=== PATIENT | female | born 1940 | race Caucasian/White ===

== ENCOUNTER 2017-01-18 04:18 | Emergency (ER) | payer MEDICARE ==
[2017-01-18] MEDS ORDERED: FUROSEMIDE INJ/PF 40 MG/4 ML SDV IV ONE (04:38)
[2017-01-18] MEDS ORDERED: IPRATROPIUM/ALBUTEROL 0.5-2.5 MG/3 ML AMPUL NEB ONE (04:43)
[2017-01-18] MEDS ORDERED: PREDNISONE 20 MG TABLET PO ONE (04:43)
[2017-01-18 05:15] LABS: ABSOLUTE BASOPHILS # (AUTO) 0.1 10^3/uL (0.0-0.2); ABSOLUTE EOSINOPHILS # (AUTO) 0.2 10^3/uL (0.0-0.6); ABSOLUTE LYMPHOCYTES (AUTO) 0.7 10^3/uL (0.5-4.7); ABSOLUTE MONOCYTES (AUTO) 0.8 10^3/uL (0.1-1.4); ABSOLUTE NEUT (AUTO) 4.1 10^3/uL (1.7-8.2); BASOPHILS % (AUTO) 1.3 % (0-2); EOSINOPHILS % (AUTO) 3.5 % (0-6); HEMATOCRIT 34.2 % (36.0-47.0); HEMOGLOBIN 11.5 g/dL (12.0-15.5); HGB HCT DIFFERENCE 0.3; LYMPHOCYTES % (AUTO) 11.3 % (13-45); MEAN CORPUSCULAR HEMOGLOBIN 30.5 pg (27.0-33.4); MEAN CORPUSCULAR HGB CONC 33.7 g/dL (32.0-36.0); MEAN CORPUSCULAR VOLUME 90 fl (80-97); RED BLOOD COUNT 3.78 10^6/uL (3.72-5.28); RED CELL DISTRIBUTION WIDTH 15.8 % (11.5-14.0); SEGMENTED NEUTROPHILS % (AUTO) 70.9 % (42-78); WHITE BLOOD COUNT 5.8 10^3/uL (4.0-10.5)
--- NOTE | 2017-01-18 05:15 | ER Document Report ---
ED Respiratory Problem - General Chief Complaint: Respiratory Distress Stated Complaint: DIFFICULTY BREATHING Notes: The patient is a 76-year-old female, past medical history CHF, hypertension, a fib, presents with mild shortness of breath over the past 4 days, worse with exertion and when she lays down. She has gained about 4 pounds over this time. She takes 40 mg Lasix twice a day and wears compression socks. She denies chest pain, syncope, fevers, leg swelling, cough, sputum, nausea, vomiting, abdominal pain, back pain or headache. TRAVEL OUTSIDE OF THE [place] IN LAST 30 DAYS: No COUNTRY TRAVELED TO/FROM: [facility] - Related Data Allergies/Adverse Reactions: Penicillins Allergy (Mild, Verified 01/18/17 04:23) Past Medical History - General Information source: Patient - Social History Smoking Status: Unknown if Ever Smoked Family History: CAD - sister, Other - father w/ dementia Patient has suicidal ideation: No Patient has homicidal ideation: No - Past Medical History Cardiac Medical History: Reports: Hx Atrial Fibrillation, Hx Congestive Heart Failure, Hx Hypercholesterolemia, Hx Hypertension, Hx Peripheral Vascular Disease Pulmonary Medical History: Reports: Hx COPD Denies: Hx Tuberculosis Endocrine Medical History: Reports: Hx Diabetes Mellitus Type 2 Renal/ Medical History: Denies: Hx Peritoneal Dialysis Malignancy Medical History: Reports: Hx Ovarian Cancer GI Medical History: Reports: Hx Ulcer Psychiatric Medical History: Reports: Hx Dementia Denies: Hx Depression Past Surgical History: Reports: Hx Hysterectomy, Hx Vascular Surgery - Left lower extremity vascular stent. Denies: Hx Pacemaker - Immunizations Hx Diphtheria, Pertussis, Tetanus Vaccination: Yes Hx Pneumococcal Vaccination: 09/27/10 Review of Systems - Review of Systems Notes: REVIEW OF SYSTEMS: CONSTITUTIONAL: -fevers, -chills EENT: -eye pain, -difficulty swallowing, -nasal congestion CARDIOVASCULAR: -chest pain, -syncope. RESPIRATORY: -cough, +SOB GASTROINTESTINAL: -abdominal pain, - nausea, -vomiting, -diarrhea GENITOURINARY: -dysuria, -hematuria MUSCULOSKELETAL: -back pain, -neck pain SKIN: -rash or skin lesions. HEMATOLOGIC: -easy bruising or bleeding. LYMPHATIC: -swollen, enlarged glands. NEUROLOGICAL: -altered mental status or loss of consciousness, -headache, - neurologic symptoms PSYCHIATRIC: -anxiety, -depression. ALL OTHER SYSTEMS REVIEWED AND NEGATIVE. Physical Exam - Vital signs Vitals: Temp Pulse Resp BP Pulse Ox 97.3 F 91 20 133/81 H 96 01/18/17 04:23 01/18/17 04:23 01/18/17 04:23 01/18/17 04:01/18/17 04:23 - Notes Notes: PHYSICAL EXAMINATION: GENERAL: Well-appearing, well-nourished and in no acute distress. HEAD: Atraumatic, normocephalic. EYES: Pupils equal round and reactive to light, extraocular movements intact, sclera anicteric, conjunctiva are normal. ENT: nares patent, oropharynx clear without exudates. Moist mucous membranes. NECK: Normal range of motion, supple without lymphadenopathy LUNGS: Mild bibasilar rales. No respiratory distress. HEART: Regular rate. Irregular rhythm. ABDOMEN: Soft, nontender, normoactive bowel sounds. No guarding, no rebound. No masses appreciated. EXTREMITIES: Compression stockings in place. Normal range of motion, no pitting or edema. No cyanosis. NEUROLOGICAL: Cranial nerves grossly intact. Normal speech, normal gait. Normal sensory, motor, and reflex exams. PSYCH: Normal mood, normal affect. SKIN: Warm, Dry, normal turgor, no rashes or lesions noted. Course - Re-evaluation Re-evalutation: Patient in no respiratory distress. Chest x-ray does not show any acute changes. After IV Lasix, patient feels much better and she is ambulating around the emergency room without any shortness of breath or SMITH. EKG is unchanged and labs are unremarkable. Will discharge patient home with follow- up at her primary care physician. Given strict return precautions and she understands. - Vital Signs Vital signs: Temp Pulse Resp BP Pulse Ox 97.3 F 91 20 133/81 H 96 01/18/17 04:23 01/18/17 04:23 01/18/17 04:23 01/18/17 04:23 01/18/17 04:23 - Laboratory Result Diagrams: 01/18/17 05:04 01/18/17 05:04 - Diagnostic Test Radiology reviewed: Image reviewed, Reports reviewed Radiology results interpreted by me: CXR: NAD - EKG Interpretation by Me Rate: Normal Rhythm: A.Fib When compared to previous EKG there are: No significant change Discharge - Discharge Clinical Impression: SMITH (dyspnea on exertion) Condition: Good Disposition: HOME, SELF-CARE Additional Instructions: Take the Lasix as directed and eat a low-salt diet. Follow-up with your primary care physician today or tomorrow to have your symptoms rechecked. If you begin having worsening shortness of breath or chest pain, return immediately to the emergency room. Congestive Heart Failure You have been diagnosed as having congestive heart failure (CHF). CHF occurs when the heart is unable to pump blood efficiently, leading to fluid buildup in the veins and lungs. Typical symptoms are swelling of the legs, shortness of breath on minor exertion, and fatigue. CHF is treated with salt restriction, medicine to eliminate excess water and salt from the body, and medication to help the heart contract more efficiently. Eliminate added salt and salty foods in your diet. Decrease your activity until excess fluid has been eliminated. It will also be helpful to raise the head of your bed so you can sleep more easily. Keep a daily record of your weight. This will help your physician monitor your progress. Once extra water has been eliminated, light aerobic exercise daily -- such as walking -- will be helpful (unless your physician has told you to restrict activity for other reasons). Be sure to follow up with the physician as instructed. Contact the doctor at once if you worsen in any way. SHORTNESS OF BREATH OR DYSPNEA: You were evaluated for shortness of breath, or dyspnea. Dyspnea has many causes, and some are more serious than others. Sometimes it's impossible to diagnose the cause of dyspnea with the tests that are available on an emergency basis. Based on our evaluation today, you do not need hospitalization now. We found no evidence of pneumonia, collapsed lung, blood clots in the lung, tumors , or heart failure. Causes of non-specific dyspnea can include asthma or bronchospasm, hyperventilation, emotional distress, heart disease, emphysema, fibrosis of the lung, and stiffness of the chest wall. In healthy individuals with a single episode, it's sometimes reasonable to do nothing but wait to see if the problem occurs again. Additional tests used to evaluate dyspnea can include cardiac stress testing, echocardiography, pulmonary function testing, CAT scan of the chest, bronchoscopy or pulmonary biopsy. Return if shortness of breath persists or worsens, or if you develop chest pain, fever, cough, confusion, or fainting. NORMAL EXAM AND WORKUP: At this time, your examination and workup show no significant abnormality. No significant abnormal physical findings were noted. All laboratory, EKG, and imaging (x-ray, CT scans, ultrasound) studies that were ordered show no significant abnormality. Although your examination and all studies that were ordered showed no significant abnormal finding, there are no examinations and no studies that are 100% accurate. There is always the possibility that some abnormality could exist and not be detected with physical examination or within the limits and capabilities of laboratory and other studies. You should return or follow up as you were instructed on your visit today for further evaluation if your symptoms do not resolve. FOLLOW-UP CARE: If you have been referred to a physician for follow-up care, call the physician s office for an appointment as you were instructed or within the next two days. If you experience worsening or a significant change in your symptoms, notify the physician immediately or return to the Emergency Department at any time for re-evaluation.
[2017-01-18 05:33] LABS: ANION GAP 13 (5-19); BLOOD UREA NITROGEN 63 mg/dL (7-20); CALCIUM 8.7 mg/dL (8.4-10.2); CARBON DIOXIDE 26 mmol/L (22-30); CHLORIDE 103 mmol/L (98-107); CREATINE KINASE 37 U/L (30-135); CREATININE RESULT 1.55 mg/dL (0.52-1.25); GLUCOSE 116 mg/dL (75-110); POTASSIUM 4.3 mmol/L (3.6-5.0); SODIUM 141.5 mmol/L (137-145)
[2017-01-18 05:44] LABS: TROPONIN I 0.033 ng/mL
[2017-01-18 06:08] VITALS: BP 134/79
--- NOTE | 2017-01-19 11:17 | EKG REPORT ---
SEVERITY:- ABNORMAL ECG - ATRIAL FIBRILLATION, V-RATE 80-133 MULTIFORM VENTRICULAR PREMATURE COMPLEXES LEFT ANTERIOR FASCICULAR BLOCK PROBABLE LVH WITH SECONDARY REPOL ABNRM BORDERLINE PROLONGED QT INTERVAL : Confirmed by: Beatriz Silver 19-Jan-2017 11:15:52
== END 2017-01-18 05:55 | disposition home or self-care (01) ==
LOC: ER 04:18
DX: R06.00 Dyspnea, unspecified (principal); I50.9 Heart failure, unspecified; I11.0 Hypertensive heart disease with heart failure; I48.91 Unspecified atrial fibrillation; E11.9 Type 2 diabetes mellitus without complications; Z88.0 Allergy status to penicillin; Z90.710 Acquired absence of both cervix and uterus; Z85.43 Personal history of malignant neoplasm of ovary
CPT/HCPCS: 93005; 99285; 96374; 36415; 82550; 85025; 80048; 84484; 83880; 71010; 93010; J1940

== ENCOUNTER 2017-09-01 10:37 | Inpatient (IN) | payer MEDICARE ==
--- NOTE | 2017-09-01 11:07 | ER Document Report ---
ED Medical Screen (RME) - General TRAVEL OUTSIDE OF THE [place] IN LAST 30 DAYS: No COUNTRY TRAVELED TO/FROM: [place] <MALLY RAMÍREZ - Last Filed: 09/01/17 12:03> - Related Data Smoking: Cigarettes - Smokes occasionally Frequency of alcohol use: Rare Drug Abuse: None <KITA ROBBINS - Last Filed: 09/01/17 14:28> - General Chief Complaint: Breathing Difficulty Stated Complaint: BREATHING DIFFICULTY Time Seen by Provider: 09/01/17 10:59 Notes: This 76-year-old female patient with past medical history of atrial fibrillation , congestive heart failure, COPD, hypertension, hyperlipidemia, type 2 diabetes , and peripheral vascular disease with a stent in her left lower extremity. She reports a 2 day history of increasing difficulty breathing, no energy, and today noted pain redness and swelling and tenderness to the right dorsal medial foot. The patient does look a little pale. I have greeted and performed a rapid initial assessment of this patient. A comprehensive ED assessment and evaluation of the patient, analysis of test results and completion of the medical decision making process will be conducted by additional ED providers. (MALLY RAMÍREZ) - HPI Notes: 09/01/17 12:16 This 76-year-old female patient with past medical history of atrial fibrillation , congestive heart failure, COPD, hypertension, hyperlipidemia, type 2 diabetes , and peripheral vascular disease with a stent in her left lower extremity. She reports a 2 day history of increasing difficulty breathing, no energy, and today noted pain redness and swelling and tenderness to the right dorsal medial foot. The patient does look a little pale. Triage note reviewed, Presents with exertional shortness of breath on minimal exertion for the last few days. She is also smoking on and off. Has strong history of coronary artery disease and CHF. No fever chills or other constitutional symptoms ( KITA ROBBINS) - Related Data Allergies/Adverse Reactions: Penicillins Allergy (Mild, Verified 09/01/17 10:43) Past Medical History - Past Medical History Cardiac Medical History: Reports: Hx Atrial Fibrillation, Hx Congestive Heart Failure, Hx Hypercholesterolemia, Hx Hypertension, Hx Peripheral Vascular Disease Pulmonary Medical History: Reports: Hx COPD Denies: Hx Tuberculosis Endocrine Medical History: Reports: Hx Diabetes Mellitus Type 2 Renal/ Medical History: Denies: Hx Peritoneal Dialysis Malignancy Medical History: Reports: Hx Ovarian Cancer GI Medical History: Reports: Hx Ulcer Psychiatric Medical History: Reports: Hx Dementia Denies: Hx Depression Past Surgical History: Reports: Hx Hysterectomy, Hx Vascular Surgery - Left lower extremity vascular stent. Denies: Hx Pacemaker - Immunizations Hx Diphtheria, Pertussis, Tetanus Vaccination: Yes <MALLY RAMÍREZ - Last Filed: 09/01/17 12:03> - General Information source: Relative - Social History Cigarette use (# per day): Yes Frequency of alcohol use: Rare - Past Medical History Cardiac Medical History: Reports: Hx Coronary Artery Disease, Hx Heart Attack <KITA ROBBINS - Last Filed: 09/01/17 14:28> Review of Systems - Review of Systems EENT: No symptoms reported Cardiovascular: Lightheaded. denies: No symptoms reported, See HPI, Chest pain , Palpitations, Heart racing, Orthopnea, Dyspnea, Syncope, Dizziness, Edema, Other, Paroxysmal Nocturnal Dysp Gastrointestinal: denies: No symptoms reported, See HPI, Abdomen distended, Abdominal pain, Diarrhea, Nausea, Vomiting, Constipation, Blood streaked bowels , Poor appetite, Poor fluid intake, Blood in vomit, Black stools, Rectal bleeding, Last bowel movement, Fecal incontinence, Other Genitourinary: denies: No symptoms reported, See HPI, Burning, Dysuria, Discharge, Frequency, Flank pain, Hematuria, Incontinence, Pain, Urgency, Retention, Other Female Genitourinary: denies: No symptoms reported, See HPI, Last menstrual period, , Post menopausal, Heavy/abnormal periods, Irregular period, Vaginal bleeding, Vaginal discharge, Vaginal odor, Painful intercourse, Other Musculoskeletal: Leg swelling, Ankle swelling. denies: No symptoms reported, See HPI, Back pain, Gout, Joint pain, Joint swelling, Muscle pain, Muscle stiffness, Neck pain, Deformity, Other Skin: denies: No symptoms reported, See HPI, Change in color, Change in hair/ nails, Dryness, Lesions, Lumps, Rash, Other Neurological/Psychological: denies: No symptoms reported, See HPI, Confusion, Dementia, Depression, Hallucinations, Anxiety, Homicidal ideation, Sensory change, Weakness, Gait changes, Loss of power, Paralysis, Seizure, Lost consciousness, Headaches, Speech impairment, Numbness, Suicidal ideation, Tingling, Tremor, Other <KITA ROBBINS - Last Filed: 09/01/17 14:28> Physical Exam - General General appearance: Alert - HEENT Head: No: Normocephalic, Atraumatic, Abrasions, Benton's sign, Ecchymosis, Open wounds, Racoon's eyes, Tenderness, Other Eyes: No: Normal, Pale conjunctiva, Periorbital ecchymosis, Periorbital edema, Scleral icterus, Tears, Other Conjunctiva: Normal. No: Icteric, Injected, Purulent discharge, Other Pharynx: No: Normal, Blood in hypopharynx, Erythema, Exudate, Peritonsillar abscess, Post nasal drainage, Retropharyngeal abscess, Tonsillar hypertrophy, Uvular edema, Potential airway comprom., Other Neck: Other - Positive for JVD - Respiratory Respiratory status: No respiratory distress, Labored. No: Respiratory distress , Agonal respirations, Cyanosis, Depressed respirations, Pursed lip breathing, Retractions, Tachypnea, Tripod position, Other Chest status: Nontender Breath sounds: Rales - Lower lung gay have diffuse inspiratory rales Chest palpation: Normal - Cardiovascular Rhythm: Regular Heart sounds: Normal auscultation, S1 appreciated, S2 appreciated - Abdominal Inspection: Normal. No: Caput medussa, Fresh incision, Gravid female, Healed incision, Striae, Wounds, Obese, Morbidly Obese, Other Distension: No: No distension, Distended, Tympanitic, Fluid wave, Distended bladder, Other Bowel sounds: Normal Tenderness: No: Nontender, Tender, McBurney's point, Sol's sign, Guarding, Rebound, Other Organomegaly: No: No organomegaly, Hepatomegaly, Splenomegaly, Mass, Other - Extremities General upper extremity: No: Normal inspection, Nontender, Tender, Edema, Normal color, Normal ROM, Normal strength, Normal temperature, Other General lower extremity: No: Normal inspection, Nontender, Tender, Edema, Normal color, Normal ROM, Normal strength, Normal temperature, Normal weight bearing, Sin's sign, Other Shoulder: No: Normal, Nontender, Tender, Abrasion, Deformity, Dislocation, Ecchymosis, Instability, Laceration, Limited ROM, Other Elbow: No: Normal, Nontender, Tender, Abrasion, Deformity, Dislocation, Ecchymosis, Instability, Joint effusion, Laceration, Limited ROM, Swollen bursa , Other Forearm: No: Normal, Nontender, Tender, Abrasion, Deformity, Ecchymosis, Instability, Laceration, Other Wrist: No: Normal, Nontender, Tender, Axial load of thumb pain, Abrasion, Deformity, Dislocation, Ecchymosis, Instability, Laceration, Limited ROM, Navicular tenderness, Other Hand: No: Normal, Nontender, Tender, Abrasion, Deformity, Dislocation, Ecchymosis, Instability, Nail injury, Laceration, No evidence of human bite, No evidence of FB, Swelling, Tendon deficit, Other Knee: No: Normal, Nontender, Tender, Abrasion, Deformity, Drawer's test instability, Dislocation, Ecchymosis, Joint effusion, Instability, Laxity with valgus stress, Laxity with varus stress, Laceration, Pain with ROM, Patellar tendon intact, Popliteal fossa tender, Tender joint line, Unable to bear weight , Other - Neurological Neuro grossly intact: Yes - Psychological Associated symptoms: Normal affect - Skin Skin Temperature: Warm <KITA ROBBINS - Last Filed: 09/01/17 14:28> - Vital signs Vitals: Temp Pulse Resp BP Pulse Ox 97.6 F 109 H 19 101/55 L 100 09/01/17 11:00 09/01/17 11:00 09/01/17 11:00 09/01/17 11:00 09/01/17 11:00 Course - Laboratory Result Diagrams: 09/01/17 11:25 09/01/17 11:25 <MALLY RAMÍREZ - Last Filed: 09/01/17 12:03> - Laboratory Result Diagrams: 09/01/17 11:25 09/01/17 11:25 - EKG Interpretation by Ak Rhythm: A.Fib - Atrial fibrillation at the rate of 87 bpm left axis, poor R- wave in anterior leads, no ST elevation or ST depression, no T-wave inversion noted. <KITA ROBBINS - Last Filed: 09/01/17 14:28> - Re-evaluation Re-evalutation: 09/01/17 14:24 Discussed with family regarding the admission to the hospital and blood transfusion 09/01/17 14:24 Discussed with the hospitalist and currently being admitted to the hospitalist service (KITA ROBBINS) - Vital Signs Vital signs: Temp Pulse Resp BP Pulse Ox 97.6 F 109 H 21 H 101/55 L 100 09/01/17 11:00 09/01/17 11:00 09/01/17 13:26 09/01/17 11:00 09/01/17 11:00 - Laboratory Laboratory results interpreted by me: 09/01/17 09/01/17 09/01/17 11:25 11:25 11:25 RBC 2.68 L Hgb 6.3 L Hct 20.5 L MCV 77 L MCH 23.5 L MCHC 30.7 L RDW 18.6 H Seg Neuts % (Manual) 81 H Lymphocytes % (Manual) 4 L Monocytes % (Manual) 15 H Abs Lymphs (Manual) 0.2 L Sodium 132.2 L Potassium 5.3 H Carbon Dioxide 16 L BUN 136 H Creatinine 2.87 H Est GFR ( Amer) 19 L Est GFR (Non-Af Amer) 16 L Glucose 294 H Direct Bilirubin 0.7 H AST 11 L Creatine Kinase 24 L NT-Pro-B Natriuret Pep 25185 H Crossmatch 09/01/17 13:12 RBC Hgb Hct MCV MCH MCHC RDW Seg Neuts % (Manual) Lymphocytes % (Manual) Monocytes % (Manual) Abs Lymphs (Manual) Sodium Potassium Carbon Dioxide BUN Creatinine Est GFR ( Amer) Est GFR (Non-Af Amer) Glucose Direct Bilirubin AST Creatine Kinase NT-Pro-B Natriuret Pep Crossmatch See Detail Doctor's Discharge <MALLY RAMÍREZ - Last Filed: 09/01/17 12:03> <KITA ROBBINS - Last Filed: 09/01/17 14:28> - Discharge Clinical Impression: Acute congestive heart failure Qualifiers: Congestive heart failure type: systolic Qualified Code(s): I50.21 - Acute systolic (congestive) heart failure Anemia Qualifiers: Anemia type: iron deficiency Iron deficiency anemia type: chronic blood loss Qualified Code(s): D50.0 - Iron deficiency anemia secondary to blood loss ( chronic) Acute on chronic renal failure Qualifiers: Acute renal failure type: with acute renal cortical necrosis Chronic kidney disease stage: stage 3 (moderate) Qualified Code(s): N17.1 - Acute kidney failure with acute cortical necrosis; N18.3 - Chronic kidney disease, stage 3 ( moderate); N18.3 - Chronic kidney disease, stage 3 (moderate) Condition: Fair Disposition: ADMITTED INPATIENT Additional Instructions: Admit to hospitalist Suzy
[2017-09-01 11:50] LABS: HEMATOCRIT 20.5 % (36.0-47.0); HGB HCT DIFFERENCE -1.6; MEAN CORPUSCULAR HEMOGLOBIN 23.5 pg (27.0-33.4); MEAN CORPUSCULAR HGB CONC 30.7 g/dL (32.0-36.0); MEAN CORPUSCULAR VOLUME 77 fl (80-97); RED BLOOD COUNT 2.68 10^6/uL (3.72-5.28); RED CELL DISTRIBUTION WIDTH 18.6 % (11.5-14.0); WHITE BLOOD COUNT 5.5 10^3/uL (4.0-10.5)
[2017-09-01 12:02] LABS: HEMOGLOBIN 6.3 g/dL (12.0-15.5)
--- NOTE | 2017-09-01 12:03 | EKG REPORT ---
SEVERITY:- ABNORMAL ECG - ATRIAL FIBRILLATION LEFT ANTERIOR FASCICULAR BLOCK ABNRM R PROG, CONSIDER ASMI OR LEAD PLACEMENT : Confirmed by: Beatriz Silver 01-Sep-2017 12:03:02
[2017-09-01 12:05] LABS: ALANINE AMINOTRANSFERASE 30 U/L (9-52); ALBUMIN 3.5 g/dL (3.5-5.0); ALKALINE PHOSPHATASE 125 U/L (38-126); ANION GAP 16 (5-19); ASPARTATE AMINO TRANSFERASE 11 U/L (14-36); BILIRUBIN,DIRECT 0.7 mg/dL (0.0-0.4); BILIRUBIN,TOTAL 0.8 mg/dL (0.2-1.3); CALCIUM 8.5 mg/dL (8.4-10.2); CARBON DIOXIDE 16 mmol/L (22-30); CHLORIDE 100 mmol/L (98-107); CREATINE KINASE 24 U/L (30-135); CREATININE RESULT 2.87 mg/dL (0.52-1.25); GLUCOSE 294 mg/dL (75-110); MAGNESIUM 1.9 mg/dL (1.6-2.3); POTASSIUM 5.3 mmol/L (3.6-5.0); SODIUM 132.2 mmol/L (137-145); TOTAL PROTEIN 6.9 g/dL (6.3-8.2)
[2017-09-01 12:13] LABS: BLOOD UREA NITROGEN 136 mg/dL (7-20)
[2017-09-01 12:18] LABS: TROPONIN I 0.023 ng/mL
[2017-09-01 12:31] LABS: BASOPHILS % (MANUAL) 0 % (0-2); EOSINOPHILS % (MANUAL) 0 % (0-6); LYMPHOCYTES % (MANUAL) 4 % (13-45); TOTAL CELLS COUNTED 100
[2017-09-01 12:33] LABS: ANISOCYTOSIS 1+; HYPOCHROMASIA 1+; OVALOCYTES 1+; POIKILOCYTOSIS 1+; TOXIC GRANULATION SLIGHT
--- NOTE | 2017-09-01 12:44 | RADIOLOGY REPORT (SQ) ---
EXAM DESCRIPTION: CHEST SINGLE VIEW COMPLETED DATE/TIME: 09/01/2017 12:36 pm REASON FOR STUDY: COPD, dyspnea COMPARISON: 01/18/2017. NUMBER OF VIEWS: One view. TECHNIQUE: Single frontal radiographic view of the chest acquired. LIMITATIONS: None. FINDINGS: LUNGS AND PLEURA: No opacities, masses or pneumothorax. No pleural effusion. MEDIASTINUM AND HILAR STRUCTURES: No masses. Contour normal. HEART AND VASCULAR STRUCTURES: Heart enlarged without failure. Normal vasculature. BONES: No acute findings. HARDWARE: None in the chest. OTHER: No other significant finding. IMPRESSION: HEART ENLARGED WITHOUT FAILURE. NO OTHER SIGNIFICANT RADIOGRAPHIC FINDING IN THE CHEST. TECHNICAL DOCUMENTATION: JOB ID: [id number] [employer]- All Rights Reserved
[2017-09-01] MEDS ORDERED: NORMAL SALINE 250 ML IV PRN ×2 (14:12)
[2017-09-01] MEDS ORDERED: ALBUTEROL SULFATE IH PRN (14:40)
[2017-09-01] MEDS ORDERED: INSULIN REGULAR HUMAN SUBCUT PRN (14:40)
[2017-09-01] MEDS ORDERED: IPRATROPIUM IH PRN (14:40)
[2017-09-01] MEDS ORDERED: [UNRECOGNIZED DRUG - OTHER] IH PRN (14:40)
[2017-09-01] MEDS ORDERED: [UNRECOGNIZED DRUG - OTHER] SUBCUT PRN (14:40)
[2017-09-01] MEDS ORDERED: NITROGLYCERIN 0.4 MG/TAB 25 TAB/BOTTLE SL PRN (14:40)
[2017-09-01 14:43] LABS: APPEARANCE,URINE SLIGHTLY-CLOUDY; BILIRUBIN,URINE NEGATIVE (NEGATIVE); GLUCOSE, URINE NEGATIVE (NEGATIVE); KETONES,URINE NEGATIVE (NEGATIVE); LEUKOCYTE ESTERASE,URINE MODERATE (NEGATIVE); NITRITE,URINE NEGATIVE (NEGATIVE); PROTEIN,URINE NEGATIVE (NEGATIVE); URINE SPECIFIC GRAVITY 1.008; UROBILINOGEN,URINE NEGATIVE mg/dL (<2.0)
[2017-09-01 15:08] LABS: BACTERIA,URINE 3+ /HPF; WBC,URINE 20-30 /HPF
[2017-09-01] MEDS ORDERED: IPRATROPIUM/ALBUTEROL 120 PUFF/4 GM MDI IH PRN (15:14)
[2017-09-01] MEDS ORDERED: DEXTROSE 50%-WATER SYRINGE 25 GM/50 ML DOSE IV PRN (15:45)
[2017-09-01] MEDS ORDERED: DEXTROSE 50%-WATER SYRINGE 12.5 GM/25 ML DOSE IV PRN (15:45)
[2017-09-01] MEDS ORDERED: GLUCAGON,HUMAN RECOMB 1 MG INJ IM PRN (15:45)
[2017-09-01] MEDS ORDERED: DEXTROSE 40% GEL 15 GM TUBE X 2 PO PRN (15:45)
[2017-09-01] MEDS ORDERED: DEXTROSE 40% GEL 15 GM TUBE PO PRN (15:45)
[2017-09-01] MEDS ORDERED: ONDANSETRON HCL INJ/PF 4 MG/2 ML SDV IV ONE (16:00)
[2017-09-01] MEDS ORDERED: NORMAL SALINE 1000 ML 1,000 ML IV PRN (16:43)
[2017-09-01] MEDS ORDERED: ACETAMINOPHEN 325 MG TABLET PO PRN (16:47)
[2017-09-01] MEDS ORDERED: PROMETHAZINE HCL INJ 25 MG/1 ML VIAL IV PRN (16:47)
[2017-09-01] MEDS ORDERED: MAG HYDROX/AL HYDROX/SIMETH SUSP 30 ML UDCUP PO PRN (16:47)
[2017-09-01] MEDS ORDERED: INSULIN LISPRO 100 UNIT/ML 3 ML VIAL SUBCUT SCH (17:00)
[2017-09-01] MEDS ORDERED: NORMAL SALINE 1000 ML 1,000 ML IV ONE (17:00)
[2017-09-01] MEDS ORDERED: SODIUM POLYSTYRENE SULFONATE 15 GM/60 ML PO ONE (17:30)
--- NOTE | 2017-09-01 17:35 | PDOC H&P ---
History of Present Illness Admission Date/PCP: 09/01/2017 [facility] Patient complains of: Generalized weakness, Rt foot pain History of Present Illness: LASHONDA GUERRERO is a 76 year old female with a past medical history of CHF, hypertension, hyperlipidemia, ID, peripheral vascular disease, diabetes mellitus type 2, GERD, remote history of GI bleed, chronic A. fib, depression, and dementia who presented to the emergency department today with a complaint of 2-3 weeks of progressively worsening generalized weakness and fatigue. Most of the HPI is received from the patient's adult daughter with whom the patient lives secondary to patient's forgetfulness. The daughter reports that she noted approximately 2 weeks ago that her mother was sleeping more and having greater difficulty with managing ADLs requiring assistance to and from bedside commode which typically she is capable of managing independently. She has also noted a slight increase in her mother's baseline forgetfulness and confusion. She states that what initially brought the patient to the emergency department today with a complaint of right foot pain, edema, and redness. The patient's daughter does report that the patient has a history of frequent falls which they attribute to the foot pain. They deny precipitating illnesses, fever, chills, chest pain, palpitation, orthopnea, dyspnea, abdominal pain, nausea, vomiting, diarrhea. Additionally they deny evidence of overy bleeding; denies melena, hematochezia, hematemesis. Initial evaluation in the emergency department reveals a hemoglobin of 6.3, Sodium 132.2, potassium 5.3, creatinine 2.87, and proBNP 24,700. She is referred to the hospitalist service for admission. Past Medical History Cardiac Medical History: Reports: Atrial Fibrillation, Congestive Heart Failure , Coronary Artery Disease, Myocardial Infarction, Hyperlipidema, Hypertension, Peripheral Vascular Disease Pulmonary Medical History: Reports: Chronic Obstructive Pulmonary Disease (COPD) Denies: Tuberculosis EENT Medical History: Reports: None Neurological Medical History: Reports: None Endocrine Medical History: Reports: Diabetes Mellitus Type 2 Renal/ Medical History: Reports: Chronic Kidney Disease Malignancy Medical History: Reports: Ovarian Cancer GI Medical History: Reports: Gastroesophageal Reflux Disease Musculoskeltal Medical History: Reports: Gout Skin Medical History: Reports: None Psychiatric Medical History: Reports: Dementia Denies: Depression Traumatic Medical History: Reports: None Hematology: Reports: None Infectious Medical History: Reports: None Past Surgical History Past Surgical History: Reports: Hysterectomy, Vascular Surgery - Left lower extremity vascular stent Denies: Pacemaker Social History Information Source: Patient, Relative Lives with: Family Smoking Status: Former Smoker Frequency of Alcohol Use: None Hx Recreational Drug Use: No Hx Prescription Drug Abuse: No - Advance Directive Resuscitation Status: Full Code Family History Family History: CAD - sister, Other - father w/ dementia Parental Family History Reviewed: Yes Children Family History Reviewed: Yes Sibling(s) Family History Reviewed.: Yes Medication/Allergy Home Medications: Carvedilol [Coreg 6.25 mg Tablet] 6.25 mg PO Q12 09/01/17 Famotidine [Pepcid 40 mg Tablet] 40 mg PO DAILY 09/01/17 Fluoxetine HCl [Prozac 20 mg Capsule] 20 mg PO DAILY 09/01/17 Furosemide [Lasix 40 mg Tablet] 40 mg PO BID 09/01/17 Insulin Glargine,Hum.rec.anlog [Lantus Insulin 100 Unit/1 ml 10 ml] 60 units SUBCUT DAILY 09/01/17 Lisinopril [Zestril] 20 mg PO DAILY 09/01/17 Allergies/Adverse Reactions: Penicillins Allergy (Mild, Verified 09/01/17 10:43) Review of Systems Constitutional: PRESENT: fatigue, weakness. ABSENT: chills, fever(s), headache( s), weight gain, weight loss Eyes: ABSENT: visual disturbances Ears: ABSENT: hearing changes Cardiovascular: ABSENT: chest pain, dyspnea on exertion, edema, orthropnea, palpitations Respiratory: ABSENT: cough, hemoptysis Gastrointestinal: PRESENT: nausea. ABSENT: abdominal pain, coffee ground emesis , constipation, diarrhea, hematemesis, hematochezia, melena, vomiting Genitourinary: ABSENT: dysuria, hematuria Musculoskeletal: PRESENT: joint swelling - Rt foot, muscle weakness - generalized Integumentary: PRESENT: rash - back. ABSENT: wounds Neurological: PRESENT: frequent falls, weakness. ABSENT: abnormal gait, abnormal speech, confusion, dizziness, focal weakness, syncope Psychiatric: ABSENT: anxiety, depression, homidical ideation, suicidal ideation Endocrine: ABSENT: cold intolerance, heat intolerance, polydipsia, polyuria Hematologic/Lymphatic: ABSENT: easy bleeding, easy bruising Physical Exam Vital Signs: Temp Pulse Resp BP Pulse Ox 97.6 F 82 16 92/55 L 100 09/01/17 15:59 09/01/17 15:59 09/01/17 15:59 09/01/17 15:59 09/01/17 15:59 Intake & Output 08/31/17 09/01/17 09/02/17 06:59 06:59 06:59 Intake Total 300 Balance 300 Weight 79.5 kg General appearance: PRESENT: no acute distress, well-developed, well-nourished, other - overweight Head exam: PRESENT: atraumatic, normocephalic Eye exam: PRESENT: conjunctiva pink, EOMI, PERRLA. ABSENT: scleral icterus Ear exam: PRESENT: normal external ear exam Mouth exam: PRESENT: dry mucosa, tongue midline Neck exam: ABSENT: carotid bruit, JVD, lymphadenopathy, thyromegaly Respiratory exam: PRESENT: clear to auscultation lida, symmetrical, unlabored. ABSENT: rales, rhonchi, wheezes Cardiovascular exam: PRESENT: irregular rhythm. ABSENT: diastolic murmur, rubs , systolic murmur, tachycardia Pulses: PRESENT: normal dorsalis pedis pul Vascular exam: PRESENT: normal capillary refill, pallor, other - poor skin turgor GI/Abdominal exam: PRESENT: normal bowel sounds, soft, other - bruising noted to Rt flank. ABSENT: distended, guarding, mass, organolmegaly, rebound, tenderness Rectal exam: PRESENT: normal rectal tone, other - stool sent for guiac. ABSENT : black stool, bloody stool, decreased rectal tone, normal inspection Extremities exam: PRESENT: full ROM. ABSENT: calf tenderness, clubbing, pedal edema Musculoskeletal exam: PRESENT: ambulatory, tenderness - Rt medial foot w/ slight edema and errythema noted Neurological exam: PRESENT: alert, awake, oriented to person, oriented to place , oriented to time, oriented to situation, CN II-XII grossly intact, other - forgetful. ABSENT: motor sensory deficit Psychiatric exam: PRESENT: appropriate affect, normal mood. ABSENT: homicidal ideation, suicidal ideation Skin exam: PRESENT: abrasion - abrasions to toes of right foot, dry, pallor, urticaria - scattered rash to back, warm. ABSENT: cyanosis, rash Results Laboratory Results: 09/01/17 11:25 09/01/17 11:25 09/01/17 09/01/17 09/01/17 11:25 11:25 13:12 WBC 5.5 RBC 2.68 L Hgb 6.3 L Hct 20.5 L MCV 77 L MCH 23.5 L MCHC 30.7 L RDW 18.6 H Plt Count 250 Seg Neutrophils % Not Reportable Lymphocytes % Not Reportable Monocytes % Not Reportable Eosinophils % Not Reportable Basophils % Not Reportable Absolute Neutrophils Not Reportable Absolute Lymphocytes Not Reportable Absolute Monocytes Not Reportable Absolute Eosinophils Not Reportable Absolute Basophils Not Reportable Sodium 132.2 L Potassium 5.3 H Chloride 100 Carbon Dioxide 16 L Anion Gap 16 BUN 136 H Creatinine 2.87 H Est GFR ( Amer) 19 L Est GFR (Non-Af Amer) 16 L Glucose 294 H Calcium 8.5 Magnesium 1.9 Total Bilirubin 0.8 AST 11 L ALT 30 Alkaline Phosphatase 125 Total Protein 6.9 Albumin 3.5 Urine Color Urine Appearance Urine pH Ur Specific Newcomb Urine Protein Urine Glucose (UA) Urine Ketones Urine Blood Urine Nitrite Ur Leukocyte Esterase Ur Squamous Epith Cells Blood Type A POSITIVE Antibody Screen NEGATIVE 09/01/17 14:08 WBC RBC Hgb Hct MCV MCH MCHC RDW Plt Count Seg Neutrophils % Lymphocytes % Monocytes % Eosinophils % Basophils % Absolute Neutrophils Absolute Lymphocytes Absolute Monocytes Absolute Eosinophils Absolute Basophils Sodium Potassium Chloride Carbon Dioxide Anion Gap BUN Creatinine Est GFR ( Amer) Est GFR (Non-Af Amer) Glucose Calcium Magnesium Total Bilirubin AST ALT Alkaline Phosphatase Total Protein Albumin Urine Color YELLOW Urine Appearance SLIGHTLY-CLOUDY Urine pH 5.0 Ur Specific Newcomb 1.008 Urine Protein NEGATIVE Urine Glucose (UA) NEGATIVE Urine Ketones NEGATIVE Urine Blood NEGATIVE Urine Nitrite NEGATIVE Ur Leukocyte Esterase MODERATE H Ur Squamous Epith Cells MODERATE Blood Type Antibody Screen 09/01/17 09/01/17 11:25 11:25 Creatine Kinase 24 L Troponin I 0.023 NT-Pro-B Natriuret Pep 08709 H Impressions: Chest X-Ray 09/01/17 11:08 IMPRESSION: HEART ENLARGED WITHOUT FAILURE. NO OTHER SIGNIFICANT RADIOGRAPHIC FINDING IN THE CHEST. Assessment & Plan - Diagnosis (1) Anemia Qualifiers: Anemia type: iron deficiency Iron deficiency anemia type: chronic blood loss Qualified Code(s): D50.0 - Iron deficiency anemia secondary to blood loss (chronic) Is this a current diagnosis for this admission?: Yes Plan: Acute blood loss anemia in the setting of chronic anemia secondary to chronic kidney disease. Presumed to be GI blood loss. The patient presents to the emergency department with generalized weakness and fatigue. On exam she is noted to have pallor. Hemoglobin is 6.3 down from a baseline of 10. We will obtain a Hemoccult and consider surgical or GI referral for colonoscopy as the patient reports that she has not had a colonoscopy in greater than 10 years. She does have a remote history of ovarian cancer that was treated with a total hysterectomy in her 30s. Additionally, the patient has had a life- threatening GI bleed in the past that prompted her primary care provider to discontinue anticoagulants for her chronic A. fib. She will be further evaluated with a noncontrasted CT of the abdomen and pelvis to rule out retroperitoneal bleed as the patient has had recent falls and is noted to have bruising to her right flank. The patient and her daughter with consented to receive blood products. We discussed the risk and benefits of blood transfusion. She is currently receiving the first of 2 units of packed red blood cells. Supplemental p.o. ferrous sulfate (2) Acute on chronic combined systolic and diastolic heart failure Is this a current diagnosis for this admission?: Yes Plan: Patient is admitted with acute on chronic combined systolic and diastolic heart failure evidenced by generalized weakness and fatigue and a proBNP of greater than 24,000. Chest x-ray is clear. On exam the patient appears volume depleted. Of note, the patient's hemoglobin is 6.3. She will receive 2 units packed red blood cells tonight as well as IV fluid bolus 1 L followed by maintenance fluid. Will hold her diuretics at this time. We will trend daily weights with strict I&Os. Cardiac diet ordered. The patient will continue her home medication Coreg and be placed on losartan. Will obtain lipid panel in the AM. Echocardiogram has been ordered. Previous echo in 2015 traits an ejection fraction of 40-45%. (3) Acute on chronic renal failure Qualifiers: Chronic kidney disease stage: stage 3 (moderate) Is this a current diagnosis for this admission?: Yes Plan: Acute on chronic renal failure. Patient's current creatinine is 2.87 which is elevated from her baseline of 1.5. I believe this to be prerenal in nature as the patient's hemoglobin is severely low and she appears to be volume depleted on exam. We will correct with blood transfusion and IV fluids. Continue to monitor. We will place a Edge with strict I's and O's. (4) Diabetes mellitus Qualifiers: Diabetes mellitus type: type 2 Chronic kidney disease stage: stage 3 ( moderate) Is this a current diagnosis for this admission?: Yes Plan: We will continue patient's home dose of Lantus 60 units daily. Will do Accu- Cheks before meals and at bedtime and cover with sliding scale Humalog. (5) Hyponatremia Is this a current diagnosis for this admission?: Yes Plan: Likely secondary to dehydration. The patient's daughter reports that the patient has been weak and fatigued for 2-3 weeks now and has noted a significant decline in her p.o. intake. The patient is to receive IV fluid replacement. Will continue to monitor. (6) Hyperkalemia Is this a current diagnosis for this admission?: Yes Plan: We will provide Kayexalate 1. EKG is reviewed and does not demonstrate evidence of peak T waves. Patient to receive IV fluids. Will trend BMPs. (7) HTN (hypertension) Is this a current diagnosis for this admission?: Yes Plan: We will continue patient's home medications; Coreg. Her lisinopril will be held secondary to her kidney function. Furosemide will be held secondary to volume depletion. We will place patient on losartan. (8) Atrial fibrillation Qualifiers: Atrial fibrillation type: chronic Qualified Code(s): I48.2 - Chronic atrial fibrillation Is this a current diagnosis for this admission?: Yes Plan: Chronic A. fib; rate controlled. We will continue the patient's home medication ; carvedilol. Chronic anticoagulations is contraindicated secondary to history of severe GI bleed and current anemia. (9) Right foot pain Is this a current diagnosis for this admission?: Yes Plan: The patient has right foot pain with abrasions noted to her fourth through fifth toes and erythema and edema to the medial portion of her foot. The foot is mildly tender. This is likely trauma secondary to a fall, less likely gout. Will obtain imaging. Patient is not a candidate for colchicine or allopurinol at this time secondary to renal function. We will manage pain with Tylenol, elevation, ice. - Time Time Spent: Greater than 70 Minutes Medications reviewed and adjusted accordingly: Yes - Inpatient Certification Based on my medical assessment, after consideration of the patient's comorbidities, presenting symptoms, or acuity I expect that the services needed warrant INPATIENT care.: Yes I certify that my determination is in accordance with my understanding of Medicare's requirements for reasonable and necessary INPATIENT services [42 CFR 412.3e].: Yes Medical Necessity: Failure to Improve With Outpatient Therapy, Significant Comorbidiites Make Outpatient Treatment Too Risky, Need For IV Fluids, Need For Continuous Telemetry Monitoring
--- NOTE | 2017-09-01 17:42 | RADIOLOGY REPORT (SQ) ---
EXAM DESCRIPTION: FOOT RIGHT 2 VIEWS COMPLETED DATE/TIME: 09/01/2017 5:33 pm REASON FOR STUDY: Rt foot pain COMPARISON: None. NUMBER OF VIEWS: Three views. TECHNIQUE: AP, lateral and oblique radiographic images acquired of the right foot. LIMITATIONS: None. FINDINGS: MINERALIZATION: Osteopenia. BONES: No acute fracture or dislocation. No worrisome bone lesions. JOINTS: No effusions. SOFT TISSUES: No soft tissue swelling. No foreign body. OTHER: No other significant finding. IMPRESSION: NEGATIVE STUDY OF THE RIGHT FOOT. NO RADIOGRAPHIC EVIDENCE OF ACUTE INJURY. TECHNICAL DOCUMENTATION: JOB ID: [id number] [employer]- All Rights Reserved
[2017-09-01 17:52] LABS: CHOLESTEROL 73.59 mg/dL (0-200); Direct HDL 19 mg/dL (>40); TRIGLYCERIDES 70 mg/dL (<150)
[2017-09-01] MEDS: ONDANSETRON HCL INJ/PF 4 MG/2 ML SDV IV PRN (17:59)
[2017-09-01 18:03] LABS: DIRECT LDL 44 mg/dL (<100)
[2017-09-01] MEDS: FERROUS SULFATE 325 MG TABLET PO SCH (18:20)
[2017-09-01] MEDS: INSULIN LISPRO 100 UNIT/ML 3 ML VIAL SUBCUT PRN (18:28)
--- NOTE | 2017-09-01 18:31 | RADIOLOGY REPORT (SQ) ---
EXAM DESCRIPTION: CT ABD/PELVIS NO ORAL OR IV COMPLETED DATE/TIME: 09/01/2017 6:02 pm REASON FOR STUDY: low hgb, falls, rt flank bruising COMPARISON: None. TECHNIQUE: CT scan of the abdomen and pelvis performed without intravenous or oral contrast. Images reviewed with lung, soft tissue, and bone windows. Reconstructed coronal and sagittal MPR images revi ewed. All images stored on PACS. All CT scanners at this facility use dose modulation, iterative reconstruction, and/or weight based d osing when appropriate to reduce radiation dose to as low as reasonably achievable (ALARA). [facility]: Dose Right [facility]: CareDose [facility]: Dose Right [facility]: Teradose 4D [facility]: StellaService RADIATION DOSE: mGy. LIMITATIONS: None. FINDINGS: LOWER CHEST: No significant findings. No nodules or infiltrates. NON-CONTRASTED LIVER, SPLEEN, ADRENALS: Liver and spleen are normal. There is a 15 mm left adrenal n odule, likely adenoma. PANCREAS: No masses. No peripancreatic inflammatory changes. GALLBLADDER: Gallstones. No inflammatory changes to suggest cholecystitis. RIGHT KIDNEY AND URETER: No suspicious masses. Assessment limited by lack of IV contrast. Vascular calcifications are present. There appear to be some small nonobstructing intrarenal calculi. No hy dronephrosis or hydroureter. LEFT KIDNEY AND URETER: No suspicious masses. Assessment limited by lack of IV contrast. Vascular c alcifications are present. There appear to be some pleural nonobstructing intrarenal calculi. No h ydronephrosis or hydroureter. AORTA AND RETROPERITONEUM: No aneurysm. Atherosclerosis. Atherosclerosis is present at the origins of the celiac, SMA, and renal arteries. BOWEL AND PERITONEAL CAVITY: No obvious masses or inflammatory changes. A small amount of ascites is best seen around the liver and spleen. APPENDIX: Not identified. PELVIS, BLADDER, AND ABDOMINAL WALL:Uterus is absent. Urinary bladder is normal. BONES: Multilevel degenerative disc disease, spondylosis. No acute abnormality. OTHER: No other significant finding. IMPRESSION: 1. Left adrenal nodule. 2. Atherosclerosis. 3. There is a small amount of ascites. 4. Osseous findings as described. 5. Renal vascular calcifications and nonobstructing intrarenal calculi. COMMENT: Quality ID # [id number]: Final reports with documentation of one or more dose reduction techniques (e.g., Automated exposure control, adjustment of the mA and/or kV according to patient size, use of iterative reconstruction technique) TECHNICAL DOCUMENTATION: JOB ID: [id number] [employer]- All Rights Reserved
[2017-09-02 04:14] LABS: HEMATOCRIT 25.3 % (36.0-47.0); HGB HCT DIFFERENCE -1.3; MEAN CORPUSCULAR HEMOGLOBIN 24.3 pg (27.0-33.4); MEAN CORPUSCULAR HGB CONC 31.6 g/dL (32.0-36.0); MEAN CORPUSCULAR VOLUME 77 fl (80-97); RED BLOOD COUNT 3.29 10^6/uL (3.72-5.28); RED CELL DISTRIBUTION WIDTH 17.7 % (11.5-14.0)
[2017-09-02 04:54] LABS: WHITE BLOOD COUNT 5.4 10^3/uL (4.0-10.5)
[2017-09-02 07:03] LABS: HEMATOCRIT 26.2 % (36.0-47.0); HEMOGLOBIN 8.4 g/dL (12.0-15.5); MEAN CORPUSCULAR HEMOGLOBIN 24.6 pg (27.0-33.4); MEAN CORPUSCULAR HGB CONC 31.9 g/dL (32.0-36.0); MEAN CORPUSCULAR VOLUME 77 fl (80-97); RED CELL DISTRIBUTION WIDTH 17.7 % (11.5-14.0)
[2017-09-02 07:15] LABS: ANION GAP 15 (5-19); CALCIUM 8.5 mg/dL (8.4-10.2); CARBON DIOXIDE 19 mmol/L (22-30); CHLORIDE 106 mmol/L (98-107); CREATININE RESULT 2.71 mg/dL (0.52-1.25); GLUCOSE 106 mg/dL (75-110); POTASSIUM 4.6 mmol/L (3.6-5.0); SODIUM 139.7 mmol/L (137-145)
[2017-09-02 07:28] LABS: BLOOD UREA NITROGEN 133 mg/dL (7-20)
[2017-09-02 07:45] LABS: ABSOLUTE EOSINOPHILS# (MANUAL) 0.2 10^3/uL (0.0-0.6); BASOPHILS % (MANUAL) 0 % (0-2); EOSINOPHILS % (MANUAL) 3 % (0-6); LYMPHOCYTES % (MANUAL) 9 % (13-45); NUCLEATED RED BLOOD CELLS 1 /100 WBC (0); TOTAL CELLS COUNTED 100
[2017-09-02 07:46] LABS: ANISOCYTOSIS 1+; MICROCYTOSIS SLIGHT; TOXIC GRANULATION 1+
[2017-09-02 07:47] LABS: HYPOCHROMASIA 1+; OVALOCYTES 1+; POIKILOCYTOSIS 1+
[2017-09-02] MEDS ORDERED: INSULIN GLARGINE,HUM.REC.ANLOG 1,000 UNIT/10 ML UNIT SUBCUT SCH (08:00)
[2017-09-02] MEDS ORDERED: INSULIN GLARGINE,HUM.REC.ANLOG 300 UNIT/3 ML INSULN.PEN SUBCUT SCH (08:00)
[2017-09-02] MEDS: NORMAL SALINE 1000 ML 1,000 ML IV PRN ×2 (08:55→22:59)
[2017-09-02] MEDS ORDERED: LOSARTAN POTASSIUM 25 MG TABLET PO SCH (10:00)
[2017-09-02] MEDS ORDERED: FLUOXETINE HCL 20 MG CAPSULE PO SCH (10:00)
[2017-09-02] MEDS ORDERED: ASPIRIN 325 MG TABLET PO SCH (10:00)
[2017-09-02] MEDS ORDERED: (PENDING PHARMACY ID) (Magnesium Oxide [Magnesium] 400 MG) PO SCH (10:00)
[2017-09-02] MEDS ORDERED: LISINOPRIL 10 MG TABLET PO SCH (10:00)
[2017-09-02] MEDS ORDERED: (PENDING PHARMACY ID) (Lisinopril [Lisinopril] 20 MG) PO SCH (10:00)
[2017-09-02] MEDS: FLUOXETINE HCL 20 MG CAPSULE PO SCH (10:52)
[2017-09-02] MEDS: FERROUS SULFATE 325 MG TABLET PO SCH ×2 (10:52→18:18)
[2017-09-02] MEDS: DOCUSATE SODIUM 100 MG CAPSULE PO SCH (10:52)
[2017-09-02] MEDS: MAGNESIUM OXIDE 400 MG TABLET PO SCH (10:56)
[2017-09-02] MEDS: PANTOPRAZOLE SODIUM 40 MG VIAL IV SCH (10:57)
[2017-09-02] MEDS: CARVEDILOL 6.25 MG TABLET PO SCH ×3 (10:58→21:34)
[2017-09-02] MEDS: INSULIN LISPRO 100 UNIT/ML 3 ML VIAL SUBCUT PRN ×3 (12:03→22:58)
[2017-09-02] MEDS ORDERED: NORMAL SALINE 250 ML IV PRN ×2 (12:52)
[2017-09-02 13:45] LABS: HEMATOCRIT 25.4 % (36.0-47.0); HEMOGLOBIN 8.1 g/dL (12.0-15.5); HGB HCT DIFFERENCE -1.1; MEAN CORPUSCULAR HEMOGLOBIN 24.5 pg (27.0-33.4); MEAN CORPUSCULAR HGB CONC 31.7 g/dL (32.0-36.0); MEAN CORPUSCULAR VOLUME 77 fl (80-97); RED BLOOD COUNT 3.28 10^6/uL (3.72-5.28); WHITE BLOOD COUNT 5.3 10^3/uL (4.0-10.5)
[2017-09-02] MEDS: ONDANSETRON HCL INJ/PF 4 MG/2 ML SDV IV PRN (16:57)
--- NOTE | 2017-09-02 16:59 | PDOC TRANSFER SUMMARY ---
General Admission Date/PCP: 09/01/17 17:57 Admission Date: 09/01/17 Transfer Date: 09/02/17 Accepting Facility: [facility] Resuscitation Status: Full Code - Transfer Diagnosis (1) Anemia Is this a current diagnosis for this admission?: Yes Diagnosis Summary: Acute blood loss anemia in the setting of chronic anemia secondary to chronic kidney disease presumed to be related to a GI bleed. The patient presented to the emergency department yesterday with generalized weakness and fatigue. On exam she is noted to have pallor, hypotension, and tachycardia. Initial hemoglobin was 6.3 and she was ordered 2 units of packed red blood cells. Review of historical records shows that she has a baseline hemoglobin of 10. Repeat hemoglobin this morning had improved to 8.4 and the patient was noted to have improvement in both blood pressure and heart rate. However, she developed another hypotensive episode with blood pressures as low as 84/49. Was ordered an IV fluid bolus and an additional unit of packed red blood cells. Her pressure did improve following the IV fluid bolus and she is currently receiving the blood transfusion. As the patient continues to be symptomatic evidence of ongoing GI bleeding, I have arranged for her to be transferred to [facility] where specialty services are available. (2) GI bleed Is this a current diagnosis for this admission?: Yes Diagnosis Summary: The patient presented to the emergency department with a report of several weeks of fatigue, and weakness. On exam she was found to be hypotensive and tachycardic. Per the patient's daughter, she has a history of a life-threatening GI bleed several years ago while on Plaquenil for A. fib. Since that time she has remained off of anticoagulants. Patient denies frequent NSAID use. The patient denies hematemesis, melena, hematochezia. A noncontrasted CT of the abdomen and pelvis was obtained as the patient has a history of frequent falls and was noted to have bruising to her right flank evaluate for retroperitoneal bleed. The CT found evidence of cholelithiasis and bilateral renal calculi, but no acute findings. A Hemoccult was obtained yesterday which was negative for blood. This morning, however, nursing noted that her stools were streaked with bright red blood and repeat Hemoccult was confirmatory. Unfortunately, we do not have GI or surgical services capable of endoscopy/colonoscopy at this time. Dr. Valdivia at [facility] has agreed to accept this patient so that she may receive the needed specialty services. (3) Acute on chronic combined systolic and diastolic heart failure Is this a current diagnosis for this admission?: Yes Diagnosis Summary: The patient was admitted with acute on chronic combined systolic and diastolic heart failure evidenced by generalized weakness and fatigue and a proBNP of 24, 700. Her chest x-ray is clear. On exam the patient appeared to be volume depleted and has a hemoglobin of 6.3 secondary to a GI bleed. She has received 2 units of packed red blood cells and is in the process of receiving the third. She was provided IV fluid bolus 1 L followed by maintenance fluids. Her diuretics were held. Her blood pressure and tachycardia has improved, though she is continues to have hypotensive episodes. ProBNP this morning was stable at 24,400. Her Coreg had to be held secondary to severe hypotensive episodes. An echocardiogram was ordered; however, has not been treated at the time of this dictation. Previous echo from 2014 demonstrates an ejection fraction of 40-45%. (4) Acute on chronic renal failure Is this a current diagnosis for this admission?: Yes Diagnosis Summary: Acute on chronic renal failure. The patient's creatinine on admission was 2.87 which has improved minimally to 2.71 following blood product replacement and IV fluids. Her baseline creatinine appears to be 1.55. I believe her acute renal failure to be prerenal in nature considering the patient's low hemoglobin and current CHF exacerbation. A Edge catheter was placed, patient continues to have good urinary output. (5) Diabetes mellitus Is this a current diagnosis for this admission?: Yes Diagnosis Summary: The patient's home dosing of Lantus, 60 units daily, was continued. Blood sugar is moderately well controlled at this time. (6) Hyponatremia Is this a current diagnosis for this admission?: Yes Diagnosis Summary: Resolved; this was likely secondary to fluid volume depletion. (7) Hyperkalemia Is this a current diagnosis for this admission?: Yes Diagnosis Summary: Resolved. The patient did receive Kayexalate 1. EKG was reviewed and did not demonstrate evidence of peaked T waves. She received IV fluids. (8) HTN (hypertension) Is this a current diagnosis for this admission?: Yes Diagnosis Summary: The patient's Coreg was held secondary to hypotension. Her lisinopril is being held secondary to acute renal failure. Furosemide is held secondary to hypotension and volume depletion. (9) Atrial fibrillation Is this a current diagnosis for this admission?: Yes Diagnosis Summary: The patient has chronic atrial fibrillation. She is rate controlled with Coreg as a home medication. Chronic anticoagulants are contraindicated related to a history of a severe GI bleed. (10) Right foot pain Is this a current diagnosis for this admission?: Yes Diagnosis Summary: The patient was noted to have right foot pain with abrasions noted to her fourth and fifth toes with erythema and edema to the medial portion of her foot. The foot was mildly tender and worsens with ambulation. An x-ray of the foot did not reveal factures. Her pain was managed with Tylenol, elevation, and ice. - Transfer Medications Home Medications: Carvedilol [Coreg 6.25 mg Tablet] 6.25 mg PO Q12 09/01/17 Famotidine [Pepcid 40 mg Tablet] 40 mg PO DAILY 09/01/17 Fluoxetine HCl [Prozac 20 mg Capsule] 20 mg PO DAILY 09/01/17 Furosemide [Lasix 40 mg Tablet] 40 mg PO BID 09/01/17 Insulin Glargine,Hum.rec.anlog [Lantus Insulin 100 Unit/1 ml 10 ml] 60 units SUBCUT DAILY 09/01/17 Lisinopril [Zestril] 20 mg PO DAILY 09/01/17 Transfer Medications: Current Medications Acetaminophen (Tylenol 325 Mg Tablet) 650 mg PO Q4HP PRN PRN Reason: pain or temp greater than 101F Stop: 10/01/17 16:46 Al Hydrox/Mg Hydrox/Simethicone (Maalox Plus Susp 30 Udcup) 30 ml PO Q4HP PRN PRN Reason: indigestion/heartburn Stop: 10/01/17 16:46 Carvedilol (Coreg 6.25 Mg Tablet) 6.25 mg PO Q12 CANDACE Stop: 10/01/17 21:59 Last Admin: 09/02/17 13:17 Dose: Not Given Dextrose (Dextrose Inj 50% Syringe (25 Gm/50 Ml)) 12.5 gm IV PRN PRN; Protocol PRN Reason: FOR BG 50-69 IN ALERT PATIENT Stop: 10/01/17 15:44 Dextrose (Dextrose Inj 50% Syringe (25 Gm/50 Ml)) 25 gm IV PRN PRN PRN Reason: Protocol Stop: 10/01/17 15:44 Docusate Sodium (Colace 100 Mg Capsule) 100 mg PO DAILY PENDING SALE TO [facility] Stop: 10/02/17 09:59 Last Admin: 09/02/17 10:52 Dose: 100 mg Ferrous Sulfate (Feosol 325 Mg Tablet) 325 mg PO BID PENDING SALE TO [facility] Stop: 10/01/17 17:59 Last Admin: 09/02/17 10:52 Dose: 325 mg Fluoxetine HCl (Prozac 20 Mg Capsule) 20 mg PO DAILY PENDING SALE TO [facility] Stop: 10/02/17 09:59 Last Admin: 09/02/17 10:52 Dose: 20 mg Glucagon (Glucagen Inj 1 Mg Vial) 1 mg IM PRN PRN; Protocol PRN Reason: EVALUATE FOR BG < 70 Stop: 10/01/17 15:44 Glucose (Glutose 40% Gel 15 Gm Tube) 15 gm PO PRN PRN; Protocol PRN Reason: FOR BG 50-69 IN ALERT PATIENT Stop: 10/01/17 15:44 Glucose (Glutose 40% Gel 15 Gm Tube) 30 gm PO PRN PRN; Protocol PRN Reason: FOR BG < 50 IN ALERT PATIENT Stop: 10/01/17 15:44 Sodium Chloride (Nacl 0.9% 1000 Ml Iv Soln) 1,000 mls @ 150 mls/hr IV CONTINUOUS PRN PRN Reason: THIS MED IS NOT "PRN" Stop: 10/01/17 16:42 Last Admin: 09/02/17 08:55 Dose: 1,000 ml Sodium Chloride (Nacl 0.9% 250 Ml Iv Soln) 250 mls @ 30 mls/hr IV .DURING TRANSFUSION PRN PRN Reason: THIS MED IS NOT "PRN" Stop: 09/03/17 12:51 Sodium Chloride (Nacl 0.9% 250 Ml Iv Soln) 250 mls @ 0 mls/hr IV CONTINUOUS PRN ; As Directed PRN Reason: AFTER EACH UNIT Stop: 09/03/17 12:51 Insulin Glargine (Lantus Insulin 100 Unit/1 Ml 10 Ml) 60 unit SUBCUT QAM PENDING SALE TO [facility] Stop: 10/02/17 07:59 Last Admin: 09/02/17 08:56 Dose: 60 unit Insulin Human Lispro (Humalog Insulin 100 Unit/1 Ml 3 Ml Vial) 0 - 12 unit SUBCUT ACHSP PRN PRN Reason: Protocol Stop: 10/01/17 15:44 Last Admin: 09/02/17 12:03 Dose: 4 unit Losartan Potassium (Cozaar 25 Mg Tablet) 25 mg PO DAILY PENDING SALE TO [facility] Stop: 10/02/17 09:59 Last Admin: 09/02/17 10:58 Dose: Not Given Magnesium Oxide (Mag-Ox 400 Mg Tablet) 400 mg PO DAILY PENDING SALE TO [facility] Stop: 10/02/17 09:59 Last Admin: 09/02/17 10:56 Dose: 400 mg Nitroglycerin (Nitrostat 0.4 Mg (1/150 Gr) Tabs 25/Bottle) 1 tab SL Q5MP PRN Stop: 10/01/17 14:39 Ondansetron HCl (Zofran Inj/Pf 4 Mg/2 Ml Sdv) 4 mg IV Q6HP PRN PRN Reason: nausea/vomiting Stop: 10/01/17 16:46 Last Admin: 09/01/17 17:59 Dose: 4 mg Pantoprazole Sodium (Protonix Iv Inj 40 Mg Vial) 40 mg IV DAILY PENDING SALE TO [facility] Stop: 09/05/17 09:59 Last Admin: 09/02/17 10:57 Dose: 40 mg Promethazine HCl (Phenergan Inj 25 Mg/1 Ml Vial) 12.5 mg IV Q4HP PRN PRN Reason: vomiting Stop: 10/01/17 16:46 Sodium Chloride (Saline Flush 2.5 Ml Monoject Prefil Syrin) 2.5 ml IV Q8 PENDING SALE TO [facility] Stop: 10/01/17 21:59 Last Admin: 09/02/17 13:46 Dose: Not Given - Allergies Allergies/Adverse Reactions: Penicillins Allergy (Mild, Verified 09/01/17 10:43) - Diet/Activity Discharge Diet: Cardiac, Diabetic Discharge Activity: Balance Activity w/Rest Physical Exam Vital Signs: Temp Pulse Resp BP Pulse Ox 97.4 F 89 20 101/49 L 99 09/02/17 16:10 09/02/17 16:10 09/02/17 16:10 09/02/17 16:10 09/02/17 16:10 Intake & Output 09/01/17 09/02/17 09/03/17 06:59 06:59 06:59 Intake Total 350 480 Output Total 250 Balance 350 230 Weight 84.1 kg General appearance: PRESENT: no acute distress, well-developed, well-nourished, other - Overweight Head exam: PRESENT: atraumatic, normocephalic Eye exam: PRESENT: conjunctiva pink, EOMI, PERRLA. ABSENT: scleral icterus Ear exam: PRESENT: normal external ear exam Mouth exam: PRESENT: moist, tongue midline Teeth exam: PRESENT: poor dentation Neck exam: ABSENT: carotid bruit, JVD, lymphadenopathy, thyromegaly Respiratory exam: PRESENT: clear to auscultation lida, symmetrical, unlabored. ABSENT: rales, rhonchi, wheezes Cardiovascular exam: PRESENT: irregular rhythm, +S1, +S2. ABSENT: diastolic murmur, rubs, systolic murmur Pulses: PRESENT: normal dorsalis pedis pul Vascular exam: PRESENT: normal capillary refill GI/Abdominal exam: PRESENT: normal bowel sounds, soft. ABSENT: distended, guarding, mass, organolmegaly, rebound, tenderness Rectal exam: PRESENT: heme (+) stool Extremities exam: PRESENT: full ROM. ABSENT: calf tenderness, clubbing, pedal edema Neurological exam: PRESENT: alert, awake, oriented to person, oriented to place , oriented to time, oriented to situation, CN II-XII grossly intact. ABSENT: motor sensory deficit Psychiatric exam: PRESENT: appropriate affect, normal mood. ABSENT: homicidal ideation, suicidal ideation Skin exam: PRESENT: dry, intact, rash - Diffusely across the back., warm. ABSENT: cyanosis Results Laboratory Results: 09/02/17 13:26 09/02/17 06:35 09/02/17 09/02/17 09/02/17 03:50 06:35 06:35 WBC 5.4 5.0 RBC 3.29 L 3.40 L Hgb 8.0 L 8.4 L Hct 25.3 L 26.2 L MCV 77 L 77 L MCH 24.3 L 24.6 L MCHC 31.6 L 31.9 L RDW 17.7 H 17.7 H Plt Count 223 228 Seg Neutrophils % Not Reportable Lymphocytes % Not Reportable Monocytes % Not Reportable Eosinophils % Not Reportable Basophils % Not Reportable Absolute Neutrophils Not Reportable Absolute Lymphocytes Not Reportable Absolute Monocytes Not Reportable Absolute Eosinophils Not Reportable Absolute Basophils Not Reportable Sodium 139.7 Potassium 4.6 Chloride 106 Carbon Dioxide 19 L Anion Gap 15 BUN 133 H Creatinine 2.71 H Est GFR ( Amer) 21 L Est GFR (Non-Af Amer) 17 L Glucose 106 Calcium 8.5 Stool Occult Blood 09/02/17 09/02/17 09:15 13:26 WBC 5.3 RBC 3.28 L Hgb 8.1 L Hct 25.4 L MCV 77 L MCH 24.5 L MCHC 31.7 L RDW 18.0 H Plt Count 216 Seg Neutrophils % Lymphocytes % Monocytes % Eosinophils % Basophils % Absolute Neutrophils Absolute Lymphocytes Absolute Monocytes Absolute Eosinophils Absolute Basophils Sodium Potassium Chloride Carbon Dioxide Anion Gap BUN Creatinine Est GFR ( Amer) Est GFR (Non-Af Amer) Glucose Calcium Stool Occult Blood POSITIVE 09/02/17 06:35 NT-Pro-B Natriuret Pep 09777 H Impressions: Abdomen/Pelvis CT 09/01/17 00:00 IMPRESSION: 1. Left adrenal nodule. 2. Atherosclerosis. 3. There is a small amount of ascites. 4. Osseous findings as described. 5. Renal vascular calcifications and nonobstructing intrarenal calculi. Foot X-Ray 09/01/17 00:00 IMPRESSION: NEGATIVE STUDY OF THE RIGHT FOOT. NO RADIOGRAPHIC EVIDENCE OF ACUTE INJURY. Chest X-Ray 09/01/17 11:08 IMPRESSION: HEART ENLARGED WITHOUT FAILURE. NO OTHER SIGNIFICANT RADIOGRAPHIC FINDING IN THE CHEST. Plan Discharge Plan: We will transfer to [facility] after completion of currently transfusing blood products. [facility] requests an update on the patient's blood pressure status post transfusion to determine appropriate placement. Time Spent: Greater than 30 Minutes
[2017-09-02 20:25] LABS: HEMATOCRIT 28.1 % (36.0-47.0); HEMOGLOBIN 9.2 g/dL (12.0-15.5); HGB HCT DIFFERENCE -0.5; MEAN CORPUSCULAR HEMOGLOBIN 25.6 pg (27.0-33.4); MEAN CORPUSCULAR HGB CONC 32.7 g/dL (32.0-36.0); MEAN CORPUSCULAR VOLUME 78 fl (80-97); RED BLOOD COUNT 3.59 10^6/uL (3.72-5.28); RED CELL DISTRIBUTION WIDTH 18.1 % (11.5-14.0); WHITE BLOOD COUNT 5.6 10^3/uL (4.0-10.5)
[2017-09-03 04:43] LABS: HEMATOCRIT 27.4 % (36.0-47.0); HEMOGLOBIN 8.9 g/dL (12.0-15.5); HGB HCT DIFFERENCE -0.7; MEAN CORPUSCULAR HEMOGLOBIN 25.3 pg (27.0-33.4); MEAN CORPUSCULAR HGB CONC 32.4 g/dL (32.0-36.0); MEAN CORPUSCULAR VOLUME 78 fl (80-97); RED BLOOD COUNT 3.51 10^6/uL (3.72-5.28); RED CELL DISTRIBUTION WIDTH 18.3 % (11.5-14.0)
[2017-09-03 05:05] LABS: ANION GAP 13 (5-19); BLOOD UREA NITROGEN 119 mg/dL (7-20); CALCIUM 8.3 mg/dL (8.4-10.2); CARBON DIOXIDE 16 mmol/L (22-30); CHLORIDE 111 mmol/L (98-107); CREATININE RESULT 2.52 mg/dL (0.52-1.25); GLUCOSE 62 mg/dL (75-110); POTASSIUM 4.6 mmol/L (3.6-5.0); SODIUM 139.6 mmol/L (137-145)
[2017-09-03 05:10] LABS: WHITE BLOOD COUNT 5.6 10^3/uL (4.0-10.5)
[2017-09-03] MEDS ORDERED: INSULIN GLARGINE,HUM.REC.ANLOG 1,000 UNIT/10 ML UNIT SUBCUT SCH (09:02)
[2017-09-03] MEDS: CARVEDILOL 6.25 MG TABLET PO SCH ×2 (09:23→21:08)
[2017-09-03] MEDS: DOCUSATE SODIUM 100 MG CAPSULE PO SCH (09:23)
[2017-09-03] MEDS: FLUOXETINE HCL 20 MG CAPSULE PO SCH (09:23)
[2017-09-03] MEDS: PANTOPRAZOLE SODIUM 40 MG VIAL IV SCH (09:23)
[2017-09-03] MEDS: MAGNESIUM OXIDE 400 MG TABLET PO SCH (09:24)
[2017-09-03] MEDS: FERROUS SULFATE 325 MG TABLET PO SCH ×2 (09:24→18:11)
[2017-09-03 09:34] LABS: PROTHROMBIN TIME 18.3 SEC (11.4-15.4)
[2017-09-03 11:20] LABS: HEMATOCRIT 27.1 % (36.0-47.0); HEMOGLOBIN 8.7 g/dL (12.0-15.5); MEAN CORPUSCULAR HEMOGLOBIN 25.3 pg (27.0-33.4); MEAN CORPUSCULAR HGB CONC 32.2 g/dL (32.0-36.0); MEAN CORPUSCULAR VOLUME 79 fl (80-97); RED BLOOD COUNT 3.44 10^6/uL (3.72-5.28); RED CELL DISTRIBUTION WIDTH 18.2 % (11.5-14.0); WHITE BLOOD COUNT 5.8 10^3/uL (4.0-10.5)
[2017-09-03] MEDS: NORMAL SALINE 1000 ML 1,000 ML IV PRN ×2 (13:39→21:09)
--- NOTE | 2017-09-03 15:10 | PDOC PROGRESS REPORT ---
Subjective Progress Note for:: 09/03/17 Subjective:: Patient is seen on morning rounds for follow-up of acute blood loss anemia secondary to GI bleed, acute on chronic heart failure, acute on chronic renal failure. She is found sitting upright on her bed having just completed breakfast with family members present. She tells me that she is feeling much better today with improved energy and alertness. She denies chest pain, palpitations, dyspnea, orthopnea. She remains slightly forgetful and pleasantly confused which is her baseline. The family members have many questions with regard to the delay in [facility] Transfer process explained to them and they are reassured that we have been in frequent communication with [facility] and that she will likely have a bed time in today. They have no other questions or concerns today. Reason For Visit: ACUTE ANEMIA, A/C HEART FAILURE, A/C RENAL FAILURE Physical Exam Vital Signs: Temp Pulse Resp BP Pulse Ox 97.3 F 84 20 120/79 99 09/03/17 13:02 09/03/17 13:02 09/03/17 13:02 09/03/17 13:02 09/03/17 13:02 Intake & Output 09/02/17 09/03/17 09/04/17 06:59 06:59 06:59 Intake Total 350 3868 Output Total 250 Balance 350 3618 Weight 87.4 kg General appearance: PRESENT: no acute distress, well-developed, well-nourished, other - Overweight Head exam: PRESENT: atraumatic, normocephalic Eye exam: PRESENT: conjunctiva pink, EOMI, PERRLA. ABSENT: scleral icterus Ear exam: PRESENT: normal external ear exam Mouth exam: PRESENT: moist, tongue midline Neck exam: ABSENT: carotid bruit, JVD, lymphadenopathy, thyromegaly Respiratory exam: PRESENT: clear to auscultation lida, symmetrical, unlabored. ABSENT: rales, rhonchi, wheezes Cardiovascular exam: PRESENT: irregular rhythm. ABSENT: diastolic murmur, rubs , systolic murmur Pulses: PRESENT: normal dorsalis pedis pul Vascular exam: PRESENT: normal capillary refill GI/Abdominal exam: PRESENT: normal bowel sounds, soft. ABSENT: distended, guarding, mass, organolmegaly, rebound, tenderness Rectal exam: PRESENT: deferred Extremities exam: PRESENT: full ROM. ABSENT: calf tenderness, clubbing, pedal edema Neurological exam: PRESENT: alert, awake, oriented to person, oriented to place , oriented to time, oriented to situation, CN II-XII grossly intact, other - Forgetful and occasionally pleasantly confused. ABSENT: motor sensory deficit Psychiatric exam: PRESENT: appropriate affect, normal mood. ABSENT: homicidal ideation, suicidal ideation Skin exam: PRESENT: dry, intact, pallor - Improved from yesterday, warm. ABSENT : cyanosis, rash Results Laboratory Results: 09/03/17 10:57 09/03/17 04:32 09/02/17 09/03/17 09/03/17 20:00 04:32 04:32 WBC 5.6 5.6 RBC 3.59 L 3.51 L Hgb 9.2 L 8.9 L Hct 28.1 L 27.4 L MCV 78 L 78 L MCH 25.6 L 25.3 L MCHC 32.7 32.4 RDW 18.1 H 18.3 H Plt Count 203 211 Sodium 139.6 Potassium 4.6 Chloride 111 H Carbon Dioxide 16 L Anion Gap 13 BUN 119 H Creatinine 2.52 H Est GFR ( Amer) 23 L Est GFR (Non-Af Amer) 19 L Glucose 62 L Calcium 8.3 L 09/03/17 10:57 WBC 5.8 RBC 3.44 L Hgb 8.7 L Hct 27.1 L MCV 79 L MCH 25.3 L MCHC 32.2 RDW 18.2 H Plt Count 205 Sodium Potassium Chloride Carbon Dioxide Anion Gap BUN Creatinine Est GFR ( Amer) Est GFR (Non-Af Amer) Glucose Calcium 09/02/17 09/03/17 06:35 04:32 NT-Pro-B Natriuret Pep 93335 H 48488 H Impressions: Abdomen/Pelvis CT 09/01/17 00:00 IMPRESSION: 1. Left adrenal nodule. 2. Atherosclerosis. 3. There is a small amount of ascites. 4. Osseous findings as described. 5. Renal vascular calcifications and nonobstructing intrarenal calculi. Foot X-Ray 09/01/17 00:00 IMPRESSION: NEGATIVE STUDY OF THE RIGHT FOOT. NO RADIOGRAPHIC EVIDENCE OF ACUTE INJURY. Chest X-Ray 09/01/17 11:08 IMPRESSION: HEART ENLARGED WITHOUT FAILURE. NO OTHER SIGNIFICANT RADIOGRAPHIC FINDING IN THE CHEST. Assessment & Plan - Diagnosis (1) Anemia Qualifiers: Anemia type: iron deficiency Iron deficiency anemia type: chronic blood loss Qualified Code(s): D50.0 - Iron deficiency anemia secondary to blood loss (chronic) Is this a current diagnosis for this admission?: Yes Plan: Acute blood loss anemia in the setting of chronic anemia secondary to chronic kidney disease. Presumed to be GI blood loss. The patient presents to the emergency department with generalized weakness and fatigue. On exam she was noted to have pallor, hypotension, and tachycardia. Initial hemoglobin was 6.3 and she was ordered 2 units of packed red blood cells. Review of historical records shows a baseline hemoglobin of 10. Repeat hemoglobin yesterday showed improvement to 8.4 and the patient was noted to have improvement in both blood pressures and heart rate., She developed another hypotensive episode with blood pressures as low as 84/49. She was ordered an IV fluid bolus and an additional unit of packed red blood cells. Her blood pressure did improve following IV fluid bolus and have remained stable since that time. Posttransfusion hemoglobin was elevated to 9.2 and and appears to be at least temporarily stable (9.2--> 8.9-->8.7). Will follow Hgb q8 hrs. As the patient continues to be symptomatic with evidence of an ongoing GI bleed , I have arranged for her to be transferred to [facility] specialty services are available. Dr. Valdivia has graciously accepted the patient and Dr. Saha was updated on the patient's status late last night. She has received a total of 3 units of packed red blood cells at this time. (2) GI bleed Is this a current diagnosis for this admission?: Yes Plan: Patient presented to the emergency department with reported several weeks of fatigueand weakness. On exam she was found to be hypotensive and tachycardic. Per the patient's daughter, she has a history of a life-threatening GI bleed several years ago while on Plaquenil for A. fib. Since that time she is remained off of anticoagulants. Patient denies frequent NSAID use. She additionally denies emesis, melena, and hematochezia. A non-prior contrasted CT of the abdomen and pelvis was obtained and ruled out a retroperitoneal bleed as the patient had a recent fall with slight right flank pain ecchymosis. A repeat Hemoccult was negative and nursing have noted that the patient stools are streaked with bright red blood. Currently, we do not have GI surgical services capable of endoscopy/colonoscopy at this time. Dr. Valdivia at [facility] has agreed to accept this patient so that she may receive the needed specialty services. At this time she is awaiting transfer. (3) Acute on chronic combined systolic and diastolic heart failure Is this a current diagnosis for this admission?: Yes Plan: Patient is admitted with acute on chronic combined systolic and diastolic heart failure evidenced by generalized weakness and fatigue and a proBNP of greater than 24,000. Chest x-ray is clear. On exam the patient appears volume depleted and initial Hgb was 6.3. The patient's diuretics were held and she has received a total of 3 units packed red blood cells, IV fluid boluses and maintenance fluids. We will trend daily weights with strict I&Os. Cardiac diet ordered. The patient's Coreg has been continued, though at a lower dose secondary to hypotension. Echocardiogram was misordered and so has not been completed. Previous echo in 2014 traits an ejection fraction of 40-45%. At this time, the patient has improved clinically and the Pro-BNP continues to trend down slowly (37417--> 82569--> 61698). Pt is [facility]. (4) Acute on chronic renal failure Qualifiers: Chronic kidney disease stage: stage 3 (moderate) Is this a current diagnosis for this admission?: Yes Plan: Acute on chronic renal failure. The patient's creatinine on admission was 2.87 which is improved slightly to 2.52 with IV fluids and blood replacement products. Her baseline creatinine appears to be 1.55. I believe her acute renal failure to be prerenal in nature given the patient's severe anemia, CHF exacerbation, and hypotensive episodes. (5) Diabetes mellitus Qualifiers: Diabetes mellitus type: type 2 Chronic kidney disease stage: stage 3 ( moderate) Is this a current diagnosis for this admission?: Yes Plan: The patient was slightly hypoglycemic this morning at 68, and she was asymptomatic. Will reduce her Lantus slightly to 58 units every morning. We will continue Accu-Cheks before meals and at bedtime with Humalog for sliding scale coverage. (6) Hyponatremia Is this a current diagnosis for this admission?: Yes Plan: Resolved. Likely secondary to dehydration. The patient's daughter reports that the patient has been weak and fatigued for 2-3 weeks now and has noted a significant decline in her p.o. intake. The patient continues to receive IV fluids. Will continue to monitor. (7) Hyperkalemia Is this a current diagnosis for this admission?: Yes Plan: Resolved. We will provide Kayexalate 1. EKG is reviewed and does not demonstrate evidence of peak T waves. Will trend BMPs. (8) HTN (hypertension) Is this a current diagnosis for this admission?: Yes Plan: We will continue patient's home medications; Coreg, though at lower dosing 2/2 hypotension. Her lisinopril will be held secondary to her kidney function. Furosemide will be held secondary to volume depletion. (9) Atrial fibrillation Qualifiers: Atrial fibrillation type: chronic Qualified Code(s): I48.2 - Chronic atrial fibrillation Is this a current diagnosis for this admission?: Yes Plan: Chronic A. fib; rate controlled. We will continue the patient's home medication ; carvedilol. Chronic anticoagulations is contraindicated secondary to history of severe GI bleed and current anemia. (10) Right foot pain Is this a current diagnosis for this admission?: Yes Plan: The patient has right foot pain with abrasions noted to her fourth through fifth toes and erythema and edema to the medial portion of her foot. The foot is mildly tender. This is likely trauma secondary to a fall, less likely gout. Will obtain imaging. Patient is not a candidate for colchicine or allopurinol at this time secondary to renal function. We will manage pain with Tylenol, elevation, ice. - Time Time Spent with patient: 35 or more minutes Anticipated discharge: [facility] Within: when bed available - Inpatient Certification Based on my medical assessment, after consideration of the patient's comorbidities, presenting symptoms, or acuity I expect that the services needed warrant INPATIENT care.: Yes I certify that my determination is in accordance with my understanding of Medicare's requirements for reasonable and necessary INPATIENT services [42 CFR 412.3e].: Yes Medical Necessity: Significant Comorbidiites Make Outpatient Treatment Too Risky , Need Close Monitoring Due to Risk of Patient Decompensation, Need For IV Fluids
[2017-09-03 18:59] LABS: HEMATOCRIT 28.8 % (36.0-47.0); HEMOGLOBIN 9.1 g/dL (12.0-15.5); HGB HCT DIFFERENCE -1.5; MEAN CORPUSCULAR HEMOGLOBIN 24.9 pg (27.0-33.4); MEAN CORPUSCULAR HGB CONC 31.4 g/dL (32.0-36.0); MEAN CORPUSCULAR VOLUME 79 fl (80-97); RED BLOOD COUNT 3.64 10^6/uL (3.72-5.28); RED CELL DISTRIBUTION WIDTH 17.9 % (11.5-14.0); WHITE BLOOD COUNT 6.1 10^3/uL (4.0-10.5)
[2017-09-04 03:29] LABS: HEMATOCRIT 29.7 % (36.0-47.0); HEMOGLOBIN 9.3 g/dL (12.0-15.5); HGB HCT DIFFERENCE -1.8; MEAN CORPUSCULAR HEMOGLOBIN 24.6 pg (27.0-33.4); MEAN CORPUSCULAR HGB CONC 31.2 g/dL (32.0-36.0); MEAN CORPUSCULAR VOLUME 79 fl (80-97); RED BLOOD COUNT 3.78 10^6/uL (3.72-5.28); RED CELL DISTRIBUTION WIDTH 18.7 % (11.5-14.0)
[2017-09-04 03:47] LABS: BLOOD UREA NITROGEN 111 mg/dL (7-20); CHLORIDE 113 mmol/L (98-107); CREATININE RESULT 2.44 mg/dL (0.52-1.25); GLUCOSE 47 mg/dL (75-110); SODIUM 142.4 mmol/L (137-145)
[2017-09-04] MEDS: NORMAL SALINE 1000 ML 1,000 ML IV PRN (03:47)
[2017-09-04 03:57] LABS: ANION GAP 18 (5-19)
[2017-09-04 04:01] LABS: CARBON DIOXIDE 11 mmol/L (22-30)
[2017-09-04] MEDS ORDERED: DEXTROSE 5%-1/2 NORMAL SALINE 1,000 ML IV PRN (04:17)
[2017-09-04 05:01] LABS: ARTERIAL BLOOD BASE EXCESS -9.3 mmol/L; ARTERIAL BLOOD O2 SATURATION 94.1 % (94-98)
[2017-09-04 05:49] LABS: APPEARANCE,URINE CLEAR; BILIRUBIN,URINE NEGATIVE (NEGATIVE); GLUCOSE, URINE NEGATIVE (NEGATIVE); KETONES,URINE NEGATIVE (NEGATIVE); LEUKOCYTE ESTERASE,URINE NEGATIVE (NEGATIVE); NITRITE,URINE NEGATIVE (NEGATIVE); PROTEIN,URINE NEGATIVE (NEGATIVE); URINE SPECIFIC GRAVITY 1.011; UROBILINOGEN,URINE NEGATIVE mg/dL (<2.0)
[2017-09-04 07:57] VITALS: BP 100/65
[2017-09-04] MEDS ORDERED: NORMAL SALINE 1000 ML 1,000 ML IV PRN (08:29)
[2017-09-04 09:52] LABS: HEMATOCRIT 31.8 % (36.0-47.0); HEMOGLOBIN 9.8 g/dL (12.0-15.5); HGB HCT DIFFERENCE -2.4; MEAN CORPUSCULAR HEMOGLOBIN 25.2 pg (27.0-33.4); MEAN CORPUSCULAR HGB CONC 30.9 g/dL (32.0-36.0); MEAN CORPUSCULAR VOLUME 82 fl (80-97); RED BLOOD COUNT 3.89 10^6/uL (3.72-5.28); RED CELL DISTRIBUTION WIDTH 18.5 % (11.5-14.0); WHITE BLOOD COUNT 6.3 10^3/uL (4.0-10.5)
[2017-09-04] MEDS: FERROUS SULFATE 325 MG TABLET PO SCH (09:53)
[2017-09-04] MEDS: DOCUSATE SODIUM 100 MG CAPSULE PO SCH (09:53)
[2017-09-04] MEDS: CARVEDILOL 6.25 MG TABLET PO SCH (09:53)
[2017-09-04] MEDS: FLUOXETINE HCL 20 MG CAPSULE PO SCH (09:53)
[2017-09-04] MEDS: PANTOPRAZOLE SODIUM 40 MG VIAL IV SCH (09:57)
[2017-09-04] MEDS ORDERED: INSULIN GLARGINE,HUM.REC.ANLOG 1,000 UNIT/10 ML UNIT SUBCUT SCH (10:00)
[2017-09-04] MEDS: MAGNESIUM OXIDE 400 MG TABLET PO SCH (10:25)
--- NOTE | 2017-09-04 11:38 | PDOC PROGRESS REPORT ---
Subjective Progress Note for:: 09/04/17 Subjective:: Patient is seen on morning rounds for follow-up of acute blood loss anemia secondary to GI bleed, acute on chronic heart failure, acute on chronic renal failure. She is found sitting upright on her bed having just completed breakfast. She tells me that she feels fine today and does not remember why she needs to be transferred to [facility]. She denies chest pain, palpitations, dyspnea, orthopnea. She remains slightly forgetful and pleasantly confused which is her baseline. She has no other questions or concerns today. Reason For Visit: ABLA SECONDARY TO GI BLEED,A/C CHF EXACERBATION, Physical Exam Vital Signs: Temp Pulse Resp BP Pulse Ox 97.7 F 77 16 100/65 99 09/04/17 07:10 09/04/17 07:34 09/04/17 07:34 09/04/17 07:34 09/04/17 07:34 Intake & Output 09/03/17 09/04/17 09/05/17 06:59 06:59 06:59 Intake Total 3868 4973 Output Total 250 372 Balance 3618 4601 Weight 87.4 kg 92.8 kg General appearance: PRESENT: no acute distress, well-developed, well-nourished, other - Overweight Head exam: PRESENT: atraumatic, normocephalic Eye exam: PRESENT: conjunctiva pink, EOMI, PERRLA. ABSENT: scleral icterus Ear exam: PRESENT: normal external ear exam Mouth exam: PRESENT: moist, tongue midline Neck exam: ABSENT: carotid bruit, JVD, lymphadenopathy, thyromegaly Respiratory exam: PRESENT: clear to auscultation lida, symmetrical, unlabored. ABSENT: rales, rhonchi, wheezes Cardiovascular exam: PRESENT: RRR, +S1, +S2. ABSENT: diastolic murmur, rubs, systolic murmur Pulses: PRESENT: normal dorsalis pedis pul Vascular exam: PRESENT: normal capillary refill GI/Abdominal exam: PRESENT: normal bowel sounds, soft. ABSENT: distended, guarding, mass, organolmegaly, rebound, tenderness Rectal exam: PRESENT: deferred Extremities exam: PRESENT: full ROM. ABSENT: calf tenderness, clubbing, pedal edema Neurological exam: PRESENT: alert, awake, oriented to person, oriented to place , CN II-XII grossly intact, other - Forgetful and pleasantly confused; at baseline. ABSENT: motor sensory deficit Psychiatric exam: PRESENT: appropriate affect, normal mood. ABSENT: homicidal ideation, suicidal ideation Skin exam: PRESENT: dry, intact, rash - back; improving, warm. ABSENT: cyanosis Results Laboratory Results: 09/04/17 09:39 09/04/17 03:14 09/03/17 09/03/17 09/04/17 10:57 18:50 03:14 WBC 5.8 6.1 RBC 3.44 L 3.64 L Hgb 8.7 L 9.1 L Hct 27.1 L 28.8 L MCV 79 L 79 L MCH 25.3 L 24.9 L MCHC 32.2 31.4 L RDW 18.2 H 17.9 H Plt Count 205 215 Carbonic Acid HCO3/H2CO3 Ratio ABG pH ABG pCO2 ABG pO2 ABG HCO3 ABG O2 Saturation ABG Base Excess FiO2 Sodium 142.4 Potassium 5.0 Chloride 113 H Carbon Dioxide 11 L Anion Gap 18 BUN 111 H Creatinine 2.44 H Est GFR ( Amer) 23 L Est GFR (Non-Af Amer) 19 L Glucose 47 L Calcium 8.0 L Urine Color Urine Appearance Urine pH Ur Specific [place] Urine Protein Urine Glucose (UA) Urine Ketones Urine Blood Urine Nitrite Ur Leukocyte Esterase Urine WBC (Auto) Urine RBC (Auto) 09/04/17 09/04/17 09/04/17 03:14 04:48 05:25 WBC 7.0 RBC 3.78 Hgb 9.3 L Hct 29.7 L MCV 79 L MCH 24.6 L MCHC 31.2 L RDW 18.7 H Plt Count 232 Carbonic Acid 0.95 L HCO3/H2CO3 Ratio 16:1 ABG pH 7.32 L ABG pCO2 31.6 L ABG pO2 74.6 L ABG HCO3 15.8 L ABG O2 Saturation 94.1 ABG Base Excess -9.3 FiO2 21% Sodium Potassium Chloride Carbon Dioxide Anion Gap BUN Creatinine Est GFR ( Amer) Est GFR (Non-Af Amer) Glucose Calcium Urine Color YELLOW Urine Appearance CLEAR Urine pH 5.0 Ur Specific [place] 1.011 Urine Protein NEGATIVE Urine Glucose (UA) NEGATIVE Urine Ketones NEGATIVE Urine Blood NEGATIVE Urine Nitrite NEGATIVE Ur Leukocyte Esterase NEGATIVE Urine WBC (Auto) 3 Urine RBC (Auto) 0 09/04/17 09:39 WBC 6.3 RBC 3.89 Hgb 9.8 L Hct 31.8 L MCV 82 MCH 25.2 L MCHC 30.9 L RDW 18.5 H Plt Count 227 Carbonic Acid HCO3/H2CO3 Ratio ABG pH ABG pCO2 ABG pO2 ABG HCO3 ABG O2 Saturation ABG Base Excess FiO2 Sodium Potassium Chloride Carbon Dioxide Anion Gap BUN Creatinine Est GFR ( Amer) Est GFR (Non-Af Amer) Glucose Calcium Urine Color Urine Appearance Urine pH Ur Specific [place] Urine Protein Urine Glucose (UA) Urine Ketones Urine Blood Urine Nitrite Ur Leukocyte Esterase Urine WBC (Auto) Urine RBC (Auto) 09/02/17 09/03/17 06:35 04:32 NT-Pro-B Natriuret Pep 46956 H 96870 H Impressions: Abdomen/Pelvis CT 09/01/17 00:00 IMPRESSION: 1. Left adrenal nodule. 2. Atherosclerosis. 3. There is a small amount of ascites. 4. Osseous findings as described. 5. Renal vascular calcifications and nonobstructing intrarenal calculi. Foot X-Ray 09/01/17 00:00 IMPRESSION: NEGATIVE STUDY OF THE RIGHT FOOT. NO RADIOGRAPHIC EVIDENCE OF ACUTE INJURY. Chest X-Ray 09/01/17 11:08 IMPRESSION: HEART ENLARGED WITHOUT FAILURE. NO OTHER SIGNIFICANT RADIOGRAPHIC FINDING IN THE CHEST. Assessment & Plan - Diagnosis (1) Anemia Qualifiers: Anemia type: iron deficiency Iron deficiency anemia type: chronic blood loss Qualified Code(s): D50.0 - Iron deficiency anemia secondary to blood loss (chronic) Is this a current diagnosis for this admission?: Yes Plan: Acute blood loss anemia in the setting of chronic anemia secondary to chronic kidney disease. Presumed to be GI blood loss. The patient presents to the emergency department with generalized weakness and fatigue. On exam she was noted to have pallor, hypotension, and tachycardia. Initial hemoglobin was 6.3 and she was ordered 2 units of packed red blood cells. Review of historical records shows a baseline hemoglobin of 10. Following initial 2 units, she developed another hypotensive episode with blood pressures as low as 84/49. She was ordered an IV fluid bolus and an additional unit of packed red blood cells. Her blood pressure did improve following IV fluid bolus and have remained stable since that time. Posttransfusion hemoglobin was elevated to 9.2 and and appears to be at least temporarily stable ; this morning Hgb is 9.8. As the patient continued to be symptomatic with evidence of an ongoing GI bleed , I have arranged for her to be transferred to [facility] where GI specialty services are available. Dr. Valdivia has graciously accepted the patient. She has received a total of 3 units of packed red blood cells at this time. (2) GI bleed Is this a current diagnosis for this admission?: Yes Plan: Patient presented to the emergency department with reported several weeks of fatigueand weakness. On exam she was found to be hypotensive and tachycardic. Per the patient's daughter, she has a history of a life-threatening GI bleed several years ago while on Plaquenil for A. fib. Since that time she is remained off of anticoagulants. Patient denies frequent NSAID use. She additionally denies emesis, melena, and hematochezia. A non-prior contrasted CT of the abdomen and pelvis was obtained and ruled out a retroperitoneal bleed as the patient had a recent fall with slight right flank pain ecchymosis. A repeat Hemoccult was negative and nursing have noted that the patient stools are streaked with bright red blood. Currently, we do not have GI surgical services capable of endoscopy/colonoscopy at this time. Dr. Valdivia at [facility] has agreed to accept this patient so that she may receive the needed specialty services. She will be transferred this AM. (3) Acute on chronic combined systolic and diastolic heart failure Is this a current diagnosis for this admission?: Yes Plan: Patient is admitted with acute on chronic combined systolic and diastolic heart failure evidenced by generalized weakness and fatigue and a proBNP of greater than 24,000. Chest x-ray is clear. On exam the patient appears volume depleted and initial Hgb was 6.3. The patient's diuretics were held and she has received a total of 3 units packed red blood cells, IV fluid boluses and maintenance fluids. We will trend daily weights with strict I&Os. Cardiac diet ordered. The patient's Coreg has been continued, though at a lower dose secondary to hypotension. Echocardiogram was misordered and so has not been completed. Previous echo in 2014 traits an ejection fraction of 40-45%. At this time, the patient has improved clinically and the Pro-BNP continues to trend down slowly (45740--> 08152--> 26281). (4) Acute on chronic renal failure Qualifiers: Chronic kidney disease stage: stage 3 (moderate) Is this a current diagnosis for this admission?: Yes Plan: Acute on chronic renal failure; acute renal failure is prerenal in nature given the patient's severe anemia, CHF exacerbation, and hypotensive episodes.. Her baseline appears to be 1.55. The patient's creatinine on admission was 2.87 which is gradually improving with IV fluids and blood replacement products. Creatinine is now 2.44. (5) Diabetes mellitus Qualifiers: Diabetes mellitus type: type 2 Chronic kidney disease stage: stage 3 ( moderate) Is this a current diagnosis for this admission?: Yes Plan: The patient hypoglycemic this morning at 47. She was additionally noted to have metabolic acidosis per ABG, likely r/t poor dietary intake secondary to GI bleed. She was placed on D51/2NS x 1 liter and then transitioned back to NS at 200ml/hr. Her lantus was reduced from 60 units daily to 20 units bid with Humalog for sliding scale coverage. (6) Hyponatremia Is this a current diagnosis for this admission?: Yes Plan: Resolved. Likely secondary to dehydration. The patient's daughter reports that the patient has been weak and fatigued for 2-3 weeks now and has noted a significant decline in her p.o. intake. The patient continues to receive IV fluids. Will continue to monitor. (7) Hyperkalemia Is this a current diagnosis for this admission?: Yes Plan: Resolved. We will provide Kayexalate 1. EKG is reviewed and does not demonstrate evidence of peak T waves. Will trend BMPs. (8) HTN (hypertension) Is this a current diagnosis for this admission?: Yes Plan: We will continue patient's home medications; Coreg, though at lower dosing 2/2 hypotension. Her lisinopril will be held secondary to her kidney function. Furosemide will be held secondary to volume depletion. (9) Atrial fibrillation Qualifiers: Atrial fibrillation type: chronic Qualified Code(s): I48.2 - Chronic atrial fibrillation Is this a current diagnosis for this admission?: Yes Plan: Chronic A. fib; rate controlled. We will continue the patient's home medication ; carvedilol. Chronic anticoagulations is contraindicated secondary to history of severe GI bleed and current anemia. (10) Right foot pain Is this a current diagnosis for this admission?: Yes Plan: The patient has right foot pain with abrasions noted to her fourth through fifth toes and erythema and edema to the medial portion of her foot. The foot is mildly tender. This is likely trauma secondary to a fall, less likely gout. Will obtain imaging. Patient is not a candidate for colchicine or allopurinol at this time secondary to renal function. We will manage pain with Tylenol, elevation, ice. - Time Time Spent with patient: 25-34 minutes [facility] Within: within 24 hours - Inpatient Certification Based on my medical assessment, after consideration of the patient's comorbidities, presenting symptoms, or acuity I expect that the services needed warrant INPATIENT care.: Yes I certify that my determination is in accordance with my understanding of Medicare's requirements for reasonable and necessary INPATIENT services [42 CFR 412.3e].: Yes Medical Necessity: Significant Comorbidiites Make Outpatient Treatment Too Risky , Need Close Monitoring Due to Risk of Patient Decompensation, Need For Continuous Telemetry Monitoring, Need for Surgery
== END 2017-09-04 10:50 | disposition short-term general hospital (02) | DRG 377 ==
LOC: ER 10:37 → EH 17:57 → 3N 09-02 12:31
PROVIDERS: ADMIT Internal Medicine; ATTEND Internal Medicine
PROC: 30233N1 Transfusion of Nonautologous Red Blood Cells into Peripheral Vein, Percutaneous Approach (ICD-10-PCS; principal; 2017-09-01)
PROC: 30233N1 Transfusion of Nonautologous Red Blood Cells into Peripheral Vein, Percutaneous Approach (ICD-10-PCS; 2017-09-02)
DX: K92.1 Melena (principal); I50.43 Acute on chronic combined systolic (congestive) and diastolic (congestive) heart failure; D62 Acute posthemorrhagic anemia; I13.0 Hypertensive heart and chronic kidney disease with heart failure and stage 1 through stage 4 chronic kidney disease, or unspecified chronic kidney disease; N17.9 Acute kidney failure, unspecified; E87.1 Hypo-osmolality and hyponatremia; D50.0 Iron deficiency anemia secondary to blood loss (chronic); N18.3 Chronic kidney disease, stage 3 (moderate); E87.5 Hyperkalemia; I48.2 Chronic atrial fibrillation; I95.89 Other hypotension; R00.0 Tachycardia, unspecified; E11.649 Type 2 diabetes mellitus with hypoglycemia without coma; E11.22 Type 2 diabetes mellitus with diabetic chronic kidney disease; I25.10 Atherosclerotic heart disease of native coronary artery without angina pectoris; Z85.43 Personal history of malignant neoplasm of ovary; Z90.710 Acquired absence of both cervix and uterus; Z79.4 Long term (current) use of insulin; S90.414A Abrasion, right lesser toe(s), initial encounter; W19.XXXA Unspecified fall, initial encounter; Y92.9 Unspecified place or not applicable; D63.1 Anemia in chronic kidney disease; Z79.899 Other long term (current) drug therapy; Z95.828 Presence of other vascular implants and grafts; Z88.0 Allergy status to penicillin; I25.2 Old myocardial infarction
CPT/HCPCS: 36415; 36430; 36600; 71010; 74176; 80048; 80053; 80061; 81001; 82272; 82550; 82803; 82962; 83735; 83880; 84484; 85025; 85027; 85610; 86850; 86900; 86901; 86920; 87040; 93005; 93010; 99285; J1815; J2405; J3490; J7030; J7050; P9016; S0164